=== PATIENT | female | born 1960 | race Caucasian/White ===

== ENCOUNTER → 2016-10-21 16:36 | Outpatient (CLI) | payer MEDICAID | END | disposition home or self-care (01) | LOC: D.MAMMO 08:15 | DX: Z12.31 Encounter for screening mammogram for malignant neoplasm of breast (principal) ==

== ENCOUNTER 2017-09-19 11:28 | Inpatient (IN) | payer MEDICARE ==
[~2017-09-19] VITALS: Ht 157.5 cm; Wt 152.6 kg
--- NOTE | ~2017-09-19 | EC ---
PATIENT:ROXI OROSCO DATE OF SERVICE: 09/19/17 SEX: F MEDICAL RECORD: [id number] DATE OF : 62 LOCATION:D.M2 D.210 AGE OF PATIENT: 57 ADMISSION DATE: 09/19/17 REFERRING PHYSICIAN: INTERPRETING PHYSICIAN: SARY RAMSEY MD ECHOCARDIOGRAM REPORT ECHO CHARGES 4 ECHO COMPLETE Date: 09/21 CLINICAL DIAGNOSIS: CHF ECHOCARDIOGRAPHIC MEASUREMENTS (adult normal given) AC root (d.<3.7cm) 3.0 cm LV Septum d (<1.2 cm> 1.6 cm Valve Excursion 1.4 cm LV Septum (systole) 2.3 cm Left Atria (s.<4.0cm> 3.8 cm LVPW d(<1.2cm) 1.3 cm RV (d.<2.3cm) 3.5 cm LVPW (sytole) 1.0 cm LV diastole(<5.6CM) 4.8 cm MV E-F(>70mm/sec) cm LV systole 4.4 cm LVOT Diameter 2.2 cm MV exc.(>10mm) cm Est.ejection fraction (50-75%) % DOPPLER: LVIT cm/sec A 124 cm/sec E 132 cm/sec LA cm/sec RVSP 48.2 mmHg LVOT 234 cm/sec AOP1/2T m/s Asc. Ao 330 cm/sec RVOT 60 cm/sec RA cm/sec PA 83 cm/sec AV Gradient Peak 3.3 mmHg AV Mean 2.1 mmHg AV Area 3.1 cm MV Gradient Peak 15.9 mmHg MV Mean 8.1 mmHg MV Area cm COMMENTS: Professional Organizer: Construction Carpenter: 1 Dr. Ramsey TAPE# PACS Pericardial Effusion N DATE OF SERVICE: 09/22/2017 PROCEDURE: Echocardiogram. FINDINGS: 1. Left ventricular chamber size is within normal limits. Left ventricular systolic function is normal. Overall ejection fraction estimated at 60%. 2. Left atrium, right atrium, and right ventricle chamber sizes are within normal limits. 3. Valvular structures have normal structure and motion. ECHOCARDIOGRAM REPORT [id number] ROXI OROSCO 4. Doppler interrogation reveals no significant valvular insufficiency or stenosis. 5. No evidence of pericardial effusion or left ventricular thrombus. TRANSINT:[id number] Voice Confirmation ID: [id number] DOCUMENT ID: [id number] SARY RAMSEY MD at 1325 CC: [id number] DICTATION DATE: 09/23/17 1055 LEVEL DESIGNER: 09/23/17 1126 DIS IN 09/27/17 [id number] [place] [address]
[2017-09-19] MEDS ORDERED: GLUCOPHAGE500 MG PO (11:49)
[2017-09-19] MEDS ORDERED: HYDROCHLOROTHIA25 MG PO (11:50)
[2017-09-19] MEDS ORDERED: CELEXA20 MG PO (11:50)
[2017-09-19] MEDS ORDERED: VENTOLIN HFA18 GM INH (11:51)
[2017-09-19] MEDS ORDERED: ALBUTEROL2.5 MG/3 M INH (11:51)
[2017-09-19 12:18] LABS: HEMATOCRIT 24.9 % (36.0-48.0); IMMATURE GRANULOCYTES 0.4 % (0-5); LYMPHOCYTES 14.4 % (15-50); MCH 20.8 pg (26.0-34.0); MCHC 26.5 g/dL (31.0-37.0); MCV 78.5 fL (80.0-100.0); MEAN PLATELET VOLUME 9.5 fL (7.4-10.4); MONOCYTES 8.7 % (2-11); NEUTROPHILS 72.5 % (40-80); PLATELET COUNT 211 10x3/uL (130-400); RBC 3.17 10x6/uL (4.00-5.40); RDW 21.7 % (11.5-14.5); WBC 10.1 10x3/uL (4.8-10.8)
[2017-09-19 12:23] LABS: HEMOGLOBIN 6.6 g/dL (12-16)
[2017-09-19 12:31] VITALS: BP 139/55
[2017-09-19 12:34] LABS: ALBUMIN 3.4 g/dL (3.4-5.0); ANION GAP 7.9 mmol/L (8-16); BILIRUBIN - TOTAL 0.45 mg/dL (0.2-1.3); CALCIUM 8.9 mg/dL (8.5-10.1); CARBON DIOXIDE 35.9 mmol/L (21.0-32.0); POTASSIUM - SERUM 3.8 mmol/L (3.5-5.1); PROTEIN - SERUM 7.8 g/dL (6.4-8.2)
[2017-09-19 12:56] LABS: % SATURATION 3 % (15-55); IRON 16 ug/dl (35-150); TOTAL IRON BIND CAPACITY 513 ug/dl (260-445)
[2017-09-19 13:02] LABS: UNSAT IRON BIND CAPACITY 497 ug/dl (150-375)
[2017-09-19 13:14] LABS: FERRITIN 5 ng/mL (3-244); LDH 189 U/L (81-234)
[2017-09-19 13:31] VITALS: BP 138/57
[2017-09-19 14:31] VITALS: BP 122/60
[2017-09-19 15:33] VITALS: BP 118/58
[2017-09-19 16:31] VITALS: BP 133/70
[2017-09-19 20:00] VITALS: BP 117/49
[2017-09-20] VITALS: BP 139/64
[2017-09-20 04:00] VITALS: BP 140/70
[2017-09-20 06:13] LABS: ANION GAP 5.4 mmol/L (8-16); CALCIUM 8.2 mg/dL (8.5-10.1); POTASSIUM - SERUM 3.4 mmol/L (3.5-5.1)
[2017-09-20 06:58] LABS: EOSINOPHILS 4.7 % (0-7); HEMATOCRIT 26.6 % (36.0-48.0); IMMATURE GRANULOCYTES 0.5 % (0-5); LYMPHOCYTES 11.8 % (15-50); MCH 21.9 pg (26.0-34.0); MCHC 27.4 g/dL (31.0-37.0); MCV 79.6 fL (80.0-100.0); MEAN PLATELET VOLUME 10.6 fL (7.4-10.4); MONOCYTES 10.2 % (2-11); NEUTROPHILS 71.8 % (40-80); PLATELET COUNT 209 10x3/uL (130-400); RBC 3.34 10x6/uL (4.00-5.40); RDW 21.1 % (11.5-14.5)
[2017-09-20 07:03] LABS: HEMOGLOBIN 7.3 g/dL (12-16)
[2017-09-20 08:01] LABS: HEMATOCRIT 26.7 % (36.0-48.0)
[2017-09-20 08:09] LABS: HEMOGLOBIN 7.3 g/dL (12-16)
[2017-09-20 08:21] VITALS: BP 146/76
[2017-09-20 11:47] VITALS: BP 148/68
[2017-09-20 13:08] LABS: HEMATOCRIT 26.9 % (36.0-48.0)
[2017-09-20 13:17] LABS: HEMOGLOBIN 7.4 g/dL (12-16)
[2017-09-20 20:49] VITALS: BP 144/80
[2017-09-21 00:35] VITALS: BP 110/50
[2017-09-21 05:15] VITALS: BP 116/52
[2017-09-21 05:46] LABS: BASOPHILS 1.1 % (0-2); EOSINOPHILS 5.2 % (0-7); HEMATOCRIT 28.8 % (36.0-48.0); HEMOGLOBIN 7.8 g/dL (12-16); IMMATURE GRANULOCYTES 1.2 % (0-5); LYMPHOCYTES 12.2 % (15-50); MCH 22.2 pg (26.0-34.0); MCHC 27.1 g/dL (31.0-37.0); MONOCYTES 12.2 % (2-11); NEUTROPHILS 68.1 % (40-80); PLATELET COUNT 179 10x3/uL (130-400); RBC 3.52 10x6/uL (4.00-5.40); WBC 10.5 10x3/uL (4.8-10.8)
[2017-09-21 05:55] LABS: MCV 81.8 fL (80.0-100.0)
[2017-09-21 06:03] LABS: INR 1.11 (0.85-1.17); PROTIME 13.9 SECONDS (11.6-15.0)
[2017-09-21 06:24] LABS: ANION GAP 4.5 mmol/L (8-16); CALCIUM 8.2 mg/dL (8.5-10.1); CARBON DIOXIDE 39.1 mmol/L (21.0-32.0); CREATININE - SERUM 0.9 mg/dL (0.6-1.3); POTASSIUM - SERUM 3.6 mmol/L (3.5-5.1); T4 THYROXIN - FREE 1.09 ng/dL (0.76-1.46); THYROID STIMULATING HORMONE 1.44 uIU/mL (0.36-3.74)
[2017-09-21 07:55] VITALS: BP 124/56
[2017-09-21 11:14] VITALS: BP 116/58
[2017-09-21 15:43] VITALS: BP 132/51
[2017-09-21] MEDS ORDERED: MIRALAX17 GM PO (15:48)
[2017-09-21] MEDS ORDERED: FERROUS SULFAT325 MG PO (15:48)
[2017-09-21 20:21] VITALS: BP 132/50
[2017-09-22 00:31] VITALS: BP 123/50
[2017-09-22 04:37] VITALS: BP 129/78
[2017-09-22 07:52] VITALS: BP 117/58
[2017-09-22 12:15] VITALS: BP 136/59
[2017-09-22 14:03] LABS: HEMATOCRIT 30.1 % (36.0-48.0); HEMOGLOBIN 8.1 g/dL (12-16); MCH 22.8 pg (26.0-34.0); MCHC 26.9 g/dL (31.0-37.0); MCV 84.8 fL (80.0-100.0); MEAN PLATELET VOLUME 10.6 fL (7.4-10.4); PLATELET COUNT 193 10x3/uL (130-400); RBC 3.55 10x6/uL (4.00-5.40); RDW 21.3 % (11.5-14.5); WBC 12.3 10x3/uL (4.8-10.8)
[2017-09-22 14:27] LABS: CALC OSMOLALITY 289 mosm/kg (275-300); CALCIUM 8.2 mg/dL (8.5-10.1); CHLORIDE - SERUM 101 mmol/L (98-107); CREATININE - SERUM 0.7 mg/dL (0.6-1.3); GLUCOSE 127 mg/dL (74-106); SODIUM 145 mmol/L (136-145); UREA NITROGEN 10 mg/dL (7-18); eGFR NON AFRICAN AMERICAN > 90 mL/min (90-120)
[2017-09-22 14:47] LABS: EOSINOPHILS 4 % (0-7); LYMPHOCYTES 18 % (15-50); MONOCYTES 6 % (2-11); NEUTROPHILS 70 % (40-80); PLATELET ESTIMATE NORMAL; PLATELET MORPHOLOGY NORMAL PLT MORPH
[2017-09-22 15:07] LABS: POTASSIUM - SERUM 4.3 mmol/L (3.5-5.1)
[2017-09-22 15:08] LABS: CARBON DIOXIDE 44.3 mmol/L (21.0-32.0)
[2017-09-22 16:12] VITALS: BP 125/63
[2017-09-22 21:39] VITALS: BP 138/46
[2017-09-23 01:29] VITALS: BP 133/58
[2017-09-23 04:24] LABS: EOSINOPHILS 3.4 % (0-7); HEMATOCRIT 30.4 % (36.0-48.0); HEMOGLOBIN 8.2 g/dL (12-16); IMMATURE GRANULOCYTES 1.5 % (0-5); LYMPHOCYTES 10.1 % (15-50); MCV 85.2 fL (80.0-100.0); MEAN PLATELET VOLUME 10.2 fL (7.4-10.4); MONOCYTES 8.5 % (2-11); NEUTROPHILS 75.5 % (40-80); PLATELET COUNT 192 10x3/uL (130-400); RBC 3.57 10x6/uL (4.00-5.40); RDW 21.5 % (11.5-14.5); WBC 13.7 10x3/uL (4.8-10.8)
[2017-09-23 04:30] VITALS: BP 109/76
[2017-09-23 04:48] LABS: CALC OSMOLALITY 285 mosm/kg (275-300); CALCIUM 8.3 mg/dL (8.5-10.1); CHLORIDE - SERUM 99 mmol/L (98-107); CREATININE - SERUM 0.8 mg/dL (0.6-1.3); GLUCOSE 133 mg/dL (74-106); SODIUM 143 mmol/L (136-145); UREA NITROGEN 11 mg/dL (7-18); eGFR NON AFRICAN AMERICAN 78 mL/min (90-120)
[2017-09-23 04:52] LABS: CARBON DIOXIDE 41.8 mmol/L (21.0-32.0)
[2017-09-23 08:03] VITALS: BP 145/71
[2017-09-23 11:55] VITALS: BP 151/69
[2017-09-23 15:01] VITALS: Ht 157.5 cm; Wt 152.6 kg
[2017-09-23 15:39] VITALS: BP 99/69
[2017-09-23 17:13] LABS: SPE - A/G RATIO 0.9 (0.7-1.7); SPE - ALPHA-1 GLOBULIN 0.3 g/dL (0.0-0.4); SPE - ALPHA-2 GLOBULIN 0.7 g/dL (0.4-1.0); SPE - BETA GLOBULIN 1.1 g/dL (0.7-1.3); SPE - GAMMA GLOBULIN 1.2 g/dL (0.4-1.8); SPE - M-SPIKE Not Observed g/dL (Not Observed); SPE - TOTAL PROTEIN 6.3 g/dL (6.0-8.5)
[2017-09-23 20:31] VITALS: BP 147/74
[2017-09-24 01:10] VITALS: BP 126/57
[2017-09-24 04:00] VITALS: BP 138/63
[2017-09-24 05:04] LABS: MAGNESIUM - SERUM 1.7 mg/dL (1.8-2.4); PHOSPHOROUS 2.2 mg/dL (2.5-4.9)
[2017-09-24 08:05] VITALS: BP 148/72
[2017-09-24 11:41] VITALS: BP 129/68
[2017-09-24 16:14] VITALS: BP 106/59
[2017-09-24 21:26] VITALS: BP 121/62
[2017-09-25 00:45] VITALS: BP 139/68
[2017-09-25 05:42] LABS: CALC OSMOLALITY 284 mosm/kg (275-300); CALCIUM 8.2 mg/dL (8.5-10.1); CHLORIDE - SERUM 98 mmol/L (98-107); CREATININE - SERUM 0.7 mg/dL (0.6-1.3); GLUCOSE 129 mg/dL (74-106); SODIUM 142 mmol/L (136-145); UREA NITROGEN 12 mg/dL (7-18); eGFR NON AFRICAN AMERICAN > 90 mL/min (90-120)
[2017-09-25 05:55] LABS: POTASSIUM - SERUM 3.4 mmol/L (3.5-5.1)
[2017-09-25 05:56] LABS: CARBON DIOXIDE 47.4 mmol/L (21.0-32.0)
[2017-09-25 06:09] LABS: IMMUNOGLOBULIN A 320 mg/dL (87-352); IMMUNOGLOBULIN G 1339 mg/dL (700-1600)
[2017-09-25 06:28] LABS: BASOPHILS 0.8 % (0-2); EOSINOPHILS 4.8 % (0-7); HEMOGLOBIN 7.6 g/dL (12-16); IMMATURE GRANULOCYTES 0.7 % (0-5); LYMPHOCYTES 11.1 % (15-50); MCH 23.2 pg (26.0-34.0); MCHC 27.1 g/dL (31.0-37.0); MCV 85.4 fL (80.0-100.0); MEAN PLATELET VOLUME 9.8 fL (7.4-10.4); NEUTROPHILS 71.6 % (40-80); PLATELET COUNT 162 10x3/uL (130-400); RBC 3.28 10x6/uL (4.00-5.40); RDW 23.1 % (11.5-14.5); WBC 10.4 10x3/uL (4.8-10.8)
[2017-09-25 06:29] VITALS: BP 127/42
[2017-09-25 08:53] VITALS: BP 149/68
[2017-09-25 12:02] VITALS: BP 120/62
[2017-09-25 15:31] VITALS: BP 142/58
[2017-09-25 22:11] VITALS: BP 100/44
[2017-09-26 00:41] VITALS: BP 126/54
[2017-09-26 03:30] LABS: BASOPHILS 0.6 % (0-2); EOSINOPHILS 6.5 % (0-7); HEMATOCRIT 28.2 % (36.0-48.0); HEMOGLOBIN 7.6 g/dL (12-16); IMMATURE GRANULOCYTES 0.6 % (0-5); LYMPHOCYTES 11.3 % (15-50); MCH 23.2 pg (26.0-34.0); MEAN PLATELET VOLUME 10.4 fL (7.4-10.4); MONOCYTES 12.2 % (2-11); NEUTROPHILS 68.8 % (40-80); PLATELET COUNT 172 10x3/uL (130-400); RBC 3.28 10x6/uL (4.00-5.40); RDW 23.6 % (11.5-14.5); WBC 10.4 10x3/uL (4.8-10.8)
[2017-09-26 04:07] LABS: CALC OSMOLALITY 279 mosm/kg (275-300); CALCIUM 8.4 mg/dL (8.5-10.1); CHLORIDE - SERUM 96 mmol/L (98-107); GLUCOSE 157 mg/dL (74-106); POTASSIUM - SERUM 3.1 mmol/L (3.5-5.1); SODIUM 139 mmol/L (136-145); UREA NITROGEN 11 mg/dL (7-18)
[2017-09-26 04:21] LABS: CREATININE - SERUM 0.9 mg/dL (0.6-1.3)
[2017-09-26 04:22] LABS: CARBON DIOXIDE 48.3 mmol/L (21.0-32.0); eGFR NON AFRICAN AMERICAN 69 mL/min (90-120)
[2017-09-26 05:34] VITALS: BP 120/49
[2017-09-26 07:56] VITALS: BP 142/69
[2017-09-26 10:36] VITALS: BP 136/72
[2017-09-26 15:18] VITALS: BP 134/70
[2017-09-26 20:00] VITALS: BP 139/83
[2017-09-27 04:00] VITALS: BP 148/73
[2017-09-27 05:48] LABS: BASOPHILS 0.8 % (0-2); EOSINOPHILS 6.5 % (0-7); HEMATOCRIT 29.8 % (36.0-48.0); HEMOGLOBIN 7.9 g/dL (12-16); IMMATURE GRANULOCYTES 0.6 % (0-5); LYMPHOCYTES 10.2 % (15-50); MCH 23.4 pg (26.0-34.0); MCHC 26.5 g/dL (31.0-37.0); MONOCYTES 9.7 % (2-11); NEUTROPHILS 72.2 % (40-80); PLATELET COUNT 175 10x3/uL (130-400); RBC 3.38 10x6/uL (4.00-5.40); RDW 24.4 % (11.5-14.5); WBC 8.9 10x3/uL (4.8-10.8)
[2017-09-27 05:58] LABS: MCV 88.2 fL (80.0-100.0)
[2017-09-27 06:06] LABS: CALCIUM 8.7 mg/dL (8.5-10.1); CREATININE - SERUM 0.9 mg/dL (0.6-1.3)
[2017-09-27 06:19] LABS: ANION GAP 3.4 mmol/L (8-16); POTASSIUM - SERUM 3.5 mmol/L (3.5-5.1)
[2017-09-27 06:20] LABS: CARBON DIOXIDE 49.1 mmol/L (21.0-32.0)
[2017-09-27 08:34] VITALS: BP 105/57
[2017-09-27] MEDS ORDERED: MUCINEX DM ER1 EAC1 PO (10:34)
[2017-09-27] MEDS ORDERED: SINGULAIR10 MG PO (10:34)
[2017-09-27] MEDS ORDERED: SYMBICORT 16010.2 GM INH (10:34)
[2017-09-27 12:38] VITALS: BP 126/56
[2017-09-30 07:29] LABS: IMMUNOGLOBULIN E 134 IU/mL (0-100)
[2017-10-01 18:08] LABS: FUNGAL - ASP FLAVUS Negative (Neg:<1:1); FUNGAL - ASP NIGER Negative (Neg:<1:1); FUNGAL - ASPER FUMIGATUS Negative (Neg:<1:1)
[2017-10-04 15:26] LABS: ANA REFLEX - ANTICHROMATIN ABS <0.2 AI (0.0-0.9); ANA REFLEX - CENTROMERE B ABS <0.2 AI (0.0-0.9); ANA REFLEX - DBL STRANDED DNA 1 IU/mL (0-9); ANA REFLEX - DIRECT Positive (Negative); ANA REFLEX - JO-1 AB <0.2 AI (0.0-0.9); ANA REFLEX - RNP ANTIBODIES <0.2 AI (0.0-0.9); ANA REFLEX - SCL-70 <0.2 AI (0.0-0.9); ANA REFLEX - SJOGRENS AB SSA 6.2 AI (0.0-0.9); ANA REFLEX - SJOGRENS AB SSB <0.2 AI (0.0-0.9); ANA REFLEX - SMITH AB <0.2 AI (0.0-0.9)
== END 2017-09-27 18:01 | disposition home or self-care (01) | DRG 377 ==
LOC: D.ER 11:28 → D.M2 17:19 → D.SDCHOLD 09-21 11:26 → D.M2 09-27 18:01
PROVIDERS: Family Medicine; Internal Medicine Gastroenterology; Internal Medicine Nephrology; Internal Medicine Pulmonary Disease
PROC: 0DB78ZX Excision of Stomach, Pylorus, Via Natural or Artificial Opening Endoscopic, Diagnostic (ICD-10-PCS; 2017-09-20)
PROC: 0DB98ZX Excision of Duodenum, Via Natural or Artificial Opening Endoscopic, Diagnostic (ICD-10-PCS; principal; 2017-09-20 12:30)
PROC: 5A09457 Assistance with Respiratory Ventilation, 24-96 Consecutive Hours, Continuous Positive Airway Pressure (ICD-10-PCS; 2017-09-24)
DX: K29.01 Acute gastritis with bleeding (principal); J15.6 Pneumonia due to other Gram-negative bacteria; J96.22 Acute and chronic respiratory failure with hypercapnia; J96.21 Acute and chronic respiratory failure with hypoxia; J13 Pneumonia due to Streptococcus pneumoniae; D62 Acute posthemorrhagic anemia; J44.0 Chronic obstructive pulmonary disease with (acute) lower respiratory infection; I50.30 Unspecified diastolic (congestive) heart failure; Z68.44 Body mass index [BMI] 60.0-69.9, adult; K44.9 Diaphragmatic hernia without obstruction or gangrene; K29.60 Other gastritis without bleeding; D50.9 Iron deficiency anemia, unspecified; I27.20 Pulmonary hypertension, unspecified; G47.33 Obstructive sleep apnea (adult) (pediatric); J30.9 Allergic rhinitis, unspecified; E11.9 Type 2 diabetes mellitus without complications; F32.9 Major depressive disorder, single episode, unspecified; M54.5 Low back pain; E66.01 Morbid (severe) obesity due to excess calories

== ENCOUNTER 2019-02-09 11:29 | Inpatient (IN) | payer MEDICARE ==
[~2019-02-09] VITALS: Ht 157.5 cm; Wt 136.8 kg
[2019-02-09] VITALS (12 sets, daily range): BP systolic 108–142; BP diastolic 54–92; BMI 62.3
--- NOTE | ~2019-02-09 | CN ---
PATIENT NAME:ROXI MARTIN MEDICAL RECORD: [id number] : 62 LOCATION:[facility]IC[facility].2309 ADMIT DATE: 02/09/19 ACCOUNT: [id number] CONSULTING PHYSICIAN: BRIANNA TAYLOR MD REFERRING PHYSICIAN: HANNA OQUENDO MD DATE OF CONSULTATION: 02/10/2019 CONSULT REQUESTING PHYSICIAN: Hanna Oquendo MD REASON FOR CONSULTATION: Acute hypoxic and hypercapnic respiratory failure. HISTORY OF PRESENT ILLNESS: Ms. Martin is a 59-year-old female who has well known COPD, chronic hypoxic respiratory failure, anemia, required transfusion. The patient is sick for the last few days. She was seen in the walk-in clinic, and the patient was sent to the hospital. She is sick for the last 1 week. She is coughing. She is wheezing. She has shortness of breath. She has orthopnea and PND. She denies any fever and chills, no night sweats. REVIEW OF SYSTEMS: As in history of present illness. PAST MEDICAL HISTORY: 1. COPD. 2. Chronic hypoxic respiratory failure. 3. Morbid obesity. 4. Iron deficiency anemia. 5. Type 2 diabetes mellitus. 6. Depression. 7. History of gastric ulcer disease. 8. History of possible kidney cancer. PAST SURGICAL HISTORY: 1. She has a . 2. Hysterectomy. ALLERGIES: No known drug allergy. MEDICATIONS: Featherlight is reviewed. PERSONAL AND SOCIAL HISTORY: The patient is a nondrinker. She is a smoker. PHYSICAL EXAMINATION: GENERAL: Now, the patient is lying in bed. She is wearing BiPAP machine. She is not in acute distress. VITAL SIGNS: The blood pressure is 132/79, pulse is 83, respirations 16, temperature is 98.8, SpO2 is 97% to 98% on BiPAP, 30% oxygen. HEENT: Conjunctivae are pink. Sclerae are not icteric. NECK: Supple, no JVD. CHEST: The chest excursion is minimal on both sides bilateral crackles, wheeze on forceful expiration. HEART: Rhythm regular, normal sound. The heart sounds are distant. ABDOMEN: Soft, bowel sounds present. No hepatosplenomegaly. RECTAL: Deferred. EXTREMITIES: No cyanosis, no clubbing. There is any pitting edema. CENTRAL NERVOUS SYSTEM: The patient is awake and alert. There is no obvious cranial nerve abnormality. The gait was not tested. CONSULT REPORT [id number] ORXI MARTIN [facility] DATA: CBC: The WBC is 22.7, hemoglobin 29.7, the hematocrit is 29.7, and the platelet count 318. Chemistry: Sodium 143, potassium 3.7, BUN is 18, creatinine 0.9, and glucose 145. ABG: The pH on admission was 7.31, pCO2 is 83.9, the PO2 was 130, bicarb was 42.7. IMPRESSION: 1. Sqobz-jl-sdpzohz hypoxic hypercapnic respiratory failure. 2. Bilateral pneumonia. 3. Respiratory acidosis. 4. Acute exacerbation of chronic obstructive pulmonary disease. 5. Noncompensated metabolic alkalosis. 6. Pleural effusion. 7. Anemia. RECOMMENDATIONS: 1. Continue BiPAP at the present setting, take off for the eating and drinking. 2. Continue Brovana and budesonide nebulizer. 3. Albuterol/ipratropium nebulizer. 4. Lasix IV. 5. Start on Diamox. 6. Follow up labs and chest radiograph. 7. Check the ammonia level. 8. Albuterol/ipratropium nebulizer. 9. DVT prophylaxis. 10. Sliding scale insulin. 11. Follow up labs and chest radiograph. Discussed with Dr. Oquendo. Thank you for involving me in the care of Ms. Martin. TRANSINT:[id number] Voice Confirmation ID: [id number] DOCUMENT ID: [id number] BRIANNA TAYLOR MD CC: [id number] DICTATION DATE: 02/10/191904 JACQUARD CARD LACER: 02/10/192222 ADM IN [id number] [place] [address]
[~2019-02-09 11:29] MED LIST: ALBUTEROL2.5 MG/3 M INH; CELEXA20 MG PO; FERROUS SULFAT325 MG PO; GLUCOPHAGE500 MG PO; HYDROCHLOROTHIA25 MG PO; MIRALAX17 GM PO; MUCINEX DM ER1 EAC1 PO; SINGULAIR10 MG PO; SYMBICORT 16010.2 GM INH; VENTOLIN HFA18 GM INH
[2019-02-09 12:26] LABS: CALC OSMOLALITY 283 mosm/kg (275-300); CALCIUM 9.4 mg/dL (8.5-10.1); CHLORIDE - SERUM 98 mmol/L (98-107); CREATININE - SERUM 0.9 mg/dL (0.6-1.3); GLUCOSE 194 mg/dL (74-106); POTASSIUM - SERUM 3.6 mmol/L (3.5-5.1); SODIUM 139 mmol/L (136-145); UREA NITROGEN 15 mg/dL (7-18); eGFR NON AFRICAN AMERICAN 68 mL/min (90-120)
[2019-02-09 12:30] LABS: MCH 22.8 pg (26.0-34.0); MCHC 26.7 g/dL (31.0-37.0); MCV 85.4 fL (80.0-100.0); MEAN PLATELET VOLUME 10.1 fL (7.4-10.4); PLATELET COUNT 363 10x3/uL (130-400); RBC 3.16 10x6/uL (4.00-5.40); RDW 20.2 % (11.5-14.5); WBC 21.4 10x3/uL (4.8-10.8)
[2019-02-09 12:31] LABS: HEMOGLOBIN 7.2 g/dL (12-16)
--- NOTE | 2019-02-09 12:31 | NUR ---
NOTIFIED BY LAB OF [facility] OF 7.2 TREATING PROVIDER NOTIFIED.
[2019-02-09 12:43] LABS: ALBUMIN 2.6 g/dL (3.4-5.0); ALKALINE PHOSPHATASE 157 U/L (46-116); ALT (SGPT) 29 U/L (10-68); BILIRUBIN - TOTAL 1.15 mg/dL (0.2-1.3); CKMB 0.5 U/L (0.0-3.6); CREATINE KINASE 55 UL (21-215); PRO BNP 1247 pg/mL (0-125); PROTEIN - SERUM 7.9 g/dL (6.4-8.2); TROPONIN-I < 0.017 ng/mL (0.000-0.060)
[2019-02-09 12:45] LABS: APTT 39.3 SECONDS (22.8-39.4); INR 1.18 (0.85-1.17); PROTIME 14.5 SECONDS (11.6-15.0)
[2019-02-09 13:02] LABS: IRON 10 ug/dl (35-150)
[2019-02-09 13:45] LABS: EOSINOPHILS 4 % (0-7); LYMPHOCYTES 9 % (15-50); MONOCYTES 13 % (2-11); NEUTROPHILS 68 % (40-80); PLATELET ESTIMATE NORMAL
[2019-02-09 13:46] LABS: ANISOCYTOSIS OCC
--- NOTE | 2019-02-09 14:00 | NUR ---
RECEIVED PT TO ROOM 2309 VIA BED ACCOMPANIED BY STAFF. PT ON BIPAP, NO ACUTE NEEDS OR DISTRESS NOTED AT THIS TIME. WILL CONT TO MONITOR.
[2019-02-09 14:41] LABS: % SATURATION 3 % (15-55); TOTAL IRON BIND CAPACITY 289 ug/dl (260-445); UNSAT IRON BIND CAPACITY 279 ug/dl (150-375)
--- NOTE | 2019-02-09 15:00 | NUR ---
REASSESSMENT COMPLETED PER FLOWSHEET, SEE FLOWSHEET FOR INFORMATION. NO ACUTE NEEDS OR DISTRESS NOTED AT THIS TIME. WILL CONT TO MONITOR.
[2019-02-09 15:09] LABS: MAGNESIUM - SERUM 1.6 mg/dL (1.8-2.4)
--- NOTE | 2019-02-09 17:00 | NUR ---
PT RESTING IN BED WITH EYES CLOSED. NO ACUTE NEEDS OR DISTRESS NOTED AT THIS TIME. VSS. WILL CONT TO MONITOR.
--- NOTE | 2019-02-09 19:00 | NUR ---
REPORT RECEIVED. INITIAL ASSESSMENT COMPLETE SEE FLOWSHEET FOR FULL ASSESSMENT. PT MORBIDLY OBESE BIPAP AT 30% O2 SAT 91%. CM READING SR WITHOUT ECTOPY ALARMS ON AND AUDIBLE. DIMINISHED BREATH SOUNDS DUE TO OBESITY FOLLOWS COMMANDS.BED IN LOW POSITION SIDE RAILS UP TIMES 3 FOR BED MOBILITY AND SAFETY CL IN REACH PT DENIES NEEDS AT THIS TIME WILL CONTINUE TO MONITOR
--- NOTE | 2019-02-09 21:30 | NUR ---
ANSWERED PTS CALL LIGHT ASSISTED TO REPOSITION IN BED
--- NOTE | 2019-02-09 23:00 | NUR ---
REASSSESSMENT MADE SEE FLOWSHEET ASSIST WITH REPOSITIONING FOR COMFORT VSS WILL CONTINUE TO MONITOR. CPOC
[2019-02-10] VITALS (24 sets, daily range): BP systolic 114–164; BP diastolic 61–90; Ht 157.5 cm; Wt 136.8 kg
--- NOTE | 2019-02-10 00:14 | NUR ---
ANSWERED PTS CALL LIGHT PT REQUESTING SOMETHING FOR PAIN TO HELP HER SLEEP. MEDICATED PER PRN MED SEE EMAR
--- NOTE | 2019-02-10 00:45 | NUR ---
CHECKED ON PT POST PRN PAIN MED RESTING QUIETLY WITH EYES CLOSED VSS CPOC
--- NOTE | 2019-02-10 01:00 | NUR ---
VICKY FEMALE EXTERNAL CATHETER LAYING IN BED AND PT STATES SHE HAS URINATED ALL OVER BED. CHG COMPLETE BED BATH AND COMPLETE LINEN CHANGE
--- NOTE | 2019-02-10 01:20 | NUR ---
ANSWERED PTS CALL LIGHT SHE IS REQUESTING COFFEE AND HAS TURNED TV BACK ON IN SPITE OF ASKING FOR SOMETHING TO HELP HER REST. INFORMED PT NEEDS TO REST AND EDUCATED AGAIN THAT DID SAY SHE COULD HAVE BREAKS FROM BIPAP BUT THAT WITH THE BREAK SHE WAS GIVEN EARLIER SHE OVER EXERTED AND NEEDS TO KEEP BIPAP ON.
--- NOTE | 2019-02-10 02:45 | NUR ---
ANSWERED CALL LIGHT PT HAS URINATED ALL OVER BED AGAIN COMPLETE CHG BATH AND LINEN CHANGE WELL WALKER CATH PLACED
--- NOTE | 2019-02-10 03:00 | NUR ---
REASSESSMENT MADE WALKER NOW IN PLACE ONCE PLACED IMMEDIATE RETURN OF 450 URINE CONCENTRATED AFTER EXTERNAL CATHETER DISPLACED
[2019-02-10 03:14] LABS: APPEARANCE HAZY (CLEAR); COLOR YELLOW (YELLOW); NITRITE NEGATIVE (NEGATIVE); SPECIFIC GRAVITY 1.015 (1.005-1.020)
[2019-02-10 03:15] LABS: BILIRUBIN NEGATIVE (NEGATIVE); GLUCOSE NEGATIVE (NEGATIVE); KETONE NEGATIVE (NEGATIVE); PROTEIN TRACE mg/dL (NEGATIVE); UROBILINOGEN NORMAL (NORMAL); WHITE CELLS - URINE RARE /hpf (NEGATIVE)
[2019-02-10 04:16] LABS: BASOPHILS 0.5 % (0-2); EOSINOPHILS 1.2 % (0-7); HEMATOCRIT 29.7 % (36.0-48.0); HEMOGLOBIN 7.8 g/dL (12-16); IMMATURE GRANULOCYTES 0.8 % (0-5); LYMPHOCYTES 3.6 % (15-50); MCH 23.1 pg (26.0-34.0); MCHC 26.3 g/dL (31.0-37.0); MCV 88.1 fL (80.0-100.0); MONOCYTES 9.8 % (2-11); NEUTROPHILS 84.1 % (40-80); PLATELET COUNT 380 10x3/uL (130-400); RBC 3.37 10x6/uL (4.00-5.40); RDW 19.9 % (11.5-14.5); WBC 22.7 10x3/uL (4.8-10.8)
[2019-02-10 04:30] LABS: ANION GAP 10.9 mmol/L (8-16); CALCIUM 8.9 mg/dL (8.5-10.1); CARBON DIOXIDE 39.8 mmol/L (21.0-32.0); CREATININE - SERUM 0.9 mg/dL (0.6-1.3); POTASSIUM - SERUM 3.7 mmol/L (3.5-5.1)
--- NOTE | 2019-02-10 05:00 | NUR ---
PTS BIPAP ALARMING O2 SAT DOWN TO 60'S PLACED BACK ON AND REEDUCATED PT ON BIPAP AND O2
--- NOTE | 2019-02-10 07:00 | NUR ---
BEDSIDE REPORT RECEIVED. SHIFT ASSESSMENT COMPLETED PER FLOWSHEET, SEE FLOWSHEET FOR INFORMATION. NO ACUTE NEEDS OR DISTRESS NOTED AT THIS TIME. VSS. WILL CONT TO MONITOR.
--- NOTE | 2019-02-10 09:00 | NUR ---
ANSWERED PT CALL LIGHT, PT REQUSTING "GET THIS THING OFF MY FACE" INFORMED PT ON RISK OF LOW OXYGEN WHEN TAKING THE BIPAP MASK OFF. PT VERBALIZED UNDERSTANDING. WILL CONT TO MONITOR.
--- NOTE | 2019-02-10 11:00 | NUR ---
PT SITTING ON SIDE OF BED, ASSISSTED PT TO LAY IN BED. REASSESSMENT COMPLETED PER FLOWSHEET, SEE FLOWSHEET FOR INFORMATION. NO ACUTE NEEDS OR DISTRESS NOTED AT THIS TIME. VSS. WILL CONT TO MONITOR.
--- NOTE | 2019-02-10 13:00 | NUR ---
PT DAUGHTER AT BEDSIDE. PT SITTING ON SIDE OF BED, NO NEEDS OR DISTRESS NOTED AT THIS TIME. VSS. WILL CONT TO MONITOR.
--- NOTE | 2019-02-10 15:00 | NUR ---
PT SITTING ON SIDE OF BED, REQUESTING A DRINK OF WATER. DRINK OF WATER GIVEN, INSTRUCTED PT TO COUGH AND CLEAR AIRWAY COMPLETELY BEFORE PUTTING THE BIPAP MASK BACK ON. PT DENIES ANY ACUTE NEEDS OR DISTRESS AT THIS TIME. VSS. WILL CONT TO MONITOR.
--- NOTE | 2019-02-10 17:00 | NUR ---
TOOK PT OFF BIPAP TO EAT DINNER, 2 MINUTES AFTER TAKING PT OFF BIPAP O2 SAT WAS 72%. INSTRUCTED PT TO COUGH AND DEEP BREATH TO CLEAR AIRWAY TO PUT BIPAP MASK BACK ON. ONCE BIPAP MASK WAS BACK ON O2 SAT WAS 95%. WILL CONT TO MONITOR.
--- NOTE | 2019-02-10 17:17 | NUR ---
REPORT GIVEN TO SUJATA YANG. WILL CONT TO MONITOR.
--- NOTE | 2019-02-10 17:17 | NUR ---
LYING IN BED ON BIPAP AT THIS TIME. VSS. NO ACUTE DISTRESS NOTED. RESPIRATIONS UNLABORED, OXYGEN SATURATION 95%. AWAKENS EASILY WHEN SPOKEN TO. WILL CONTINUE PLAN OF CARE.
--- NOTE | 2019-02-10 19:00 | NUR ---
REPORT RECEIVED. INITIAL ASSESMENT COMPLETE. DR TAYLOR AT BEDSIDE SPEAKING TO PATIENT NEW ORDERS NOTED. PT SITTING ON SIDE OF BED WITH BIPAP ON ALERT AND ORIENTED DENIES PAIN OR SOB. BIPAP 40%. PT IS ATTEMPTING TO DRINK WATER WITH BIPAP IN PLACE INFORMED THAT DUE TO THE PRESSURE PUSHING TO OPEN AIRWAYS THAT THERE IS HIGH RISK OF ASPIRATION AND NOTHING BY MOUTH WHILE BIPAP MASK ON. DR TAYLOR STATED OK TO GIVE PT BREAK FROM BIPAP TO HFNC FOR EATING AND DRINKING IF PT TOLERATES. RESP SHALLOW NOT LABORED PT O2 SAT AT THIS TIME 98 BUT WHEN PT TAKES MASK OFF SHE DROPS TO 70'S. INFORMED PT WILL GIVE BREAK WHEN HS MEDS DUE AND SEE HOW O2 SAT HOLDS UP PT VERBALIZES GOOD UNDERSTANDING. BED LOW POSITION CL IN REACH WILL CONTINUE TO MONITOR
--- NOTE | 2019-02-10 19:26 | NUR ---
CRITICAL LAB VALUE AMMONIA NEW ORDERS NOTED FROM DR TAYLOR
--- NOTE | 2019-02-10 20:05 | NUR ---
PT PLACED ON 15 LPM HFNC PER RT.
--- NOTE | 2019-02-10 20:25 | NUR ---
ANSWERED PTS CALL LIGHT SHE IS REQUESTING SOMETHING TO EAT O2 SAT 97% ON HFNC SANDWICH TRAY GIVEN WILL CONTINUE TO MONITOR
--- NOTE | 2019-02-10 20:45 | NUR ---
ANSWERED PTS CALL LIGHT SHE WANTS TO GET UP OUT OF BED AND WALK AROUND PT TOLERATED HFNC WITH EATING AND DRINKING WITH HS MEDS WELL. O2 SAT HAS STAYED MID TO UPPER 90'S. INFORMED NOT ABLE TO DO AT THIS WITH FIRST TIME OFF BIPAP
--- NOTE | 2019-02-10 21:48 | NUR ---
ANSWERED PTS CALL LIGHT PT NEEDS TO HAVE BM UP TO BSC WITH MINIMAL ASSIST STILL ON HFNC 15LPM DENIES SOB OR DISTRESS O2 SAT93%.
--- NOTE | 2019-02-10 22:00 | NUR ---
PT HAD LARGE LIQUID BROWN STOOL UNABLE TO CLEAN SELF AFTER BM DUE TO MORBID OBESITY. ASSISTED WITH CLEANING AND CHG BATH
--- NOTE | 2019-02-10 22:40 | NUR ---
ANSWERED PTS CALL LIGHT SHE WANTS TO TAKE BIPAP OFF AND WANTS TO HAVE SOMETHING FOR PAIN TO HELP REST C/O BEING UNCOMFORTABLE GENERALIZED FROM BED. INFORMED UNABLE TO TAKE MASK OFF SHE HAD JUST HAD LONG BREAK
--- NOTE | 2019-02-10 23:00 | NUR ---
REASSESSMENT MADE PT HAS PULLED BIPAP OFF INFORMED OF NEED TO KEEP BIPAP ON AND THAT SHE NEES TO REST SINCE PAIN MED HAS BEEN GIVEN UNABLE TO GET UP OOB AND THAT SHE HAD JUST HAD BIPAP BREAK.
[2019-02-11] VITALS (24 sets, daily range): BP systolic 112–151; BP diastolic 55–95
--- NOTE | 2019-02-11 01:15 | NUR ---
PT AGAIN REMINDED TO LEAVE BIPAP MASK ON. PT HAD PULLED OFF AND O2 SAT HAD DROPPED TO 78%.
--- NOTE | 2019-02-11 03:00 | NUR ---
REASSESSMENT MADE PT C/O OF BIPAP MASK AND KEEPS WANTING TO TAKE OFF. THIS RN AND RT HAVE EXPLAINED TO PT THAT BIPAP MASK IS TO STAY ON BUT ABLE TO HAVE SHORT SPAN OF BREAKS.
--- NOTE | 2019-02-11 03:30 | NUR ---
COAT FELLER HERE AT THIS TIME PT FINALLY RESTING INFORMED LAB TO LET PT SLEEP AND GET LAB LATER IN AM.
--- NOTE | 2019-02-11 04:00 | NUR ---
ANSWERED PTS CALL LIGHT ONCE AGAIN SHE WANTS BIPAP OFF. RT AND THIS NURSE HAVE INFORMED PT MULTIPLE TIMES THAT BIPAP TO STAY ON MAJORITY OF TIME ALSO HAVE REMINDED PT THAT TO GET OOB WOULD PUT PT AT GREATER FALL RISK AFTER PAIN MED THAT HAD BEEN GIVEN.
--- NOTE | 2019-02-11 04:57 | NUR ---
RADIOLOGY HERE FOR PORTABLE CHEST X RAY
--- NOTE | 2019-02-11 05:00 | NUR ---
NO LABS ORDERED
[2019-02-11 07:03] LABS: BASOPHILS 0.5 % (0-2); HEMATOCRIT 32.3 % (36.0-48.0); HEMOGLOBIN 8.3 g/dL (12-16); IMMATURE GRANULOCYTES 2.2 % (0-5); LYMPHOCYTES 4.5 % (15-50); MCH 23.2 pg (26.0-34.0); MCHC 25.7 g/dL (31.0-37.0); MEAN PLATELET VOLUME 10.3 fL (7.4-10.4); MONOCYTES 8.8 % (2-11); PLATELET COUNT 401 10x3/uL (130-400); RBC 3.57 10x6/uL (4.00-5.40); RDW 19.9 % (11.5-14.5)
[2019-02-11 07:05] LABS: MCV 90.5 fL (80.0-100.0); WBC 16.8 10x3/uL (4.8-10.8)
[2019-02-11 07:24] LABS: ANION GAP 9.3 mmol/L (8-16); CALCIUM 8.8 mg/dL (8.5-10.1); POTASSIUM - SERUM 3.4 mmol/L (3.5-5.1)
[2019-02-11 07:27] LABS: CARBON DIOXIDE 42.1 mmol/L (21.0-32.0)
--- NOTE | 2019-02-11 08:24 | NUR ---
SITTING UP ON SIDE OF BED EATING BREAKFAST AT THIS TIME ON HIGH FLOW NC AT 15L, OXYGEN SATRUATION AT 95%. VSS. NO ACUTE DISTRESS NOTED. CALL LIGHT IN REACH. WILL CONTINUE PLAN OF CARE.
--- NOTE | 2019-02-11 09:10 | NUR ---
DR TAYLOR PAGED. HE CALLED BACK STATING HE IS NOT ELEMENTARY EDUCATION TUTOR, THAT DR IBARRA IS ELEMENTARY EDUCATION TUTOR. DR IBARRA PAGED.
--- NOTE | 2019-02-11 10:25 | NUR ---
PT ASSITED BACK TO BED, SHE STATED SHE WANTED TO TAKE A NAP, BIPAP IN PLACE. OXYGEN SATURATION 96%. VSS. WILL CONTINUE PLAN OF CARE.
--- NOTE | 2019-02-11 11:07 | NUR ---
CRITICAL LABS NOTED REGARDING ABG, DR STACEY ESCOBAR. WAITING FOR CALLBACK.
--- NOTE | 2019-02-11 12:09 | NUR ---
NO CALLBACK FROM DR IBARRA RECIEVED. PAGED AGAIN.
--- NOTE | 2019-02-11 12:35 | NUR ---
STILL UNABLE TO GET AHOLD OF DR IBARRA. DR SOTO ROUNDING ON PT AT THIS TIME. NOTIFIED OF LAB VALUES. BIPAP IN PLACE. VSS. WILL CONTINUE PLAN OF CARE.
--- NOTE | 2019-02-11 12:49 | NUR ---
PT TOOK BIPAP OFF STATING SHE WANTED TO TALK TO HER FRIEND. NOTIFIED PT THAT SHE CANNOT TOLERATE HER BIPAP OFF YET BECAUSE OF HER CRITICAL CARBON DIOXIDE LEVELS. PT STATED SHE UNDERSTOOD AND WILL KEEP BIPAP ON. DR SOTO ON UNIT, NOTIFIED OF THIS. VSS. WILL CONTINUE PLAN OF CARE.
--- NOTE | 2019-02-11 13:36 | NUR ---
PT UP IN BED TALKING WITH MOTHER AT THIS TIME. VSS. NO ACUTE DISTRESS NOTED. UPDATES PROVIDED. CALL LIGHT IN REACH. WILL CONTINUE PLAN OF CARE.
--- NOTE | 2019-02-11 14:04 | NUR ---
POTASSIUM LEVEL RECHECK IS 4.0.
--- NOTE | 2019-02-11 16:15 | NUR ---
UP IN BED AT THIS TIME, FAMILY AT BEDSIDE. VSS. NO ACUTE DISTRESS NOTED. CALL LIGHT IN REACH. WILL CONTINUE PLAN OF CARE.
--- NOTE | 2019-02-11 17:01 | NUR ---
BIPAP REMOVED AT THIS TIME SO PT COULD EAT SUPPER. FAMILY AT BEDSIDE. DR IBARRA IN ROOM SPEAKING WITH PT AND PTS FAMILY. DR IBARRA STATED AFTER PT FINISHED WITH HER SUPPER SHE NEEDS THE BIPAP BACK ON. NO ACUTE DISTERSS NOTED. VSS. WILL CONTINUE PLAN OF CARE.
--- NOTE | 2019-02-11 17:52 | NUR ---
BIPAP IN PLACE. PT LYING IN BED RESTING WITH EYES CLOSED. RESPIRATIONS UNLABORED. AWAKENS EASILY WHEN SPOKEN TO. VSS. NO ACUTE DISTRESS NOTED. WILL CONTINUE PLAN OF CARE.
--- NOTE | 2019-02-11 19:00 | NUR ---
REPORT RECEIVED. ASSESSMENT COMPLETE PER FLOW SHEET. VSS. NO NEW CHANGES PT RESTING COMFORTABLY RT AT BEDSIDE WILL CONTINUE TO MONITOR
--- NOTE | 2019-02-11 22:20 | NUR ---
PT AGGITATED UPSET STATED WANTING TO LEAVE AMA AT THIS TIME, PT UP OOB REMOVED BIPAP REFUSING O2, ATTEMPTING TO GET DRESSED. NURSE EXPLAINED AT GREAT LENGTH IMPORTANCE OF BIPAP AND O2, STATED UNDERSTANDING BUT WANTED TO LEAVE AT THIS TIME R/T MONITORS, EQUIPMENT, PAIN AND NEEDING A CIGARETTE. NURSE STATED COULD GIVEN PRN MORPHINE FOR PAIN AT THIS TIME AND REASSESS BIPAP IN 10 MINUTES. PRN MORPHINE ADM. 2230 ASKED IF PT WOULD WEAR BIPAP AT THIS TIME STATED OKAY. PT SLEEPING COMFORTABLY ON BIPAP 50%
--- NOTE | 2019-02-11 23:00 | NUR ---
PT SLEEPING COMFORTABLY REASSESSMENT COMPLETE PER FLOW SHEET. VSS. NO NEW CHANGES WILL CONTINUE TO MONITOR
[2019-02-12] VITALS (24 sets, daily range): BP systolic 92–159; BP diastolic 52–90
--- NOTE | 2019-02-12 01:00 | NUR ---
PT SLEEPING COMFORTABLY VSS NO NEW CHANGES WILL CONTINUE TO MONITOR
--- NOTE | 2019-02-12 03:00 | NUR ---
REASSESSMENT COMPLETE PER FLOW SHEET. VSS. NO NEW CHANGES PT RESTING COMFORTABLY WILL CONTINUE TO MONITOR
[2019-02-12 03:42] LABS: BASOPHILS 0.5 % (0-2); EOSINOPHILS 2.5 % (0-7); HEMATOCRIT 29.5 % (36.0-48.0); IMMATURE GRANULOCYTES 4.3 % (0-5); LYMPHOCYTES 5.6 % (15-50); MCH 23.5 pg (26.0-34.0); MCHC 25.4 g/dL (31.0-37.0); MONOCYTES 10.1 % (2-11); PLATELET COUNT 453 10x3/uL (130-400); RBC 3.19 10x6/uL (4.00-5.40); RDW 19.8 % (11.5-14.5); WBC 12.9 10x3/uL (4.8-10.8)
[2019-02-12 03:44] LABS: HEMOGLOBIN 7.5 g/dL (12-16); MCV 92.5 fL (80.0-100.0)
[2019-02-12 03:52] LABS: ANION GAP 4.4 mmol/L (8-16); CALCIUM 9.1 mg/dL (8.5-10.1); MAGNESIUM - SERUM 1.9 mg/dL (1.8-2.4); PHOSPHOROUS 4.5 mg/dL (2.5-4.9); POTASSIUM - SERUM 3.7 mmol/L (3.5-5.1)
[2019-02-12 03:55] LABS: CARBON DIOXIDE 45.3 mmol/L (21.0-32.0)
--- NOTE | 2019-02-12 07:06 | NUR ---
report received. patient is on side of bed on 40% bipap. no acute distress. patient asking when she will get a break from bipap. was informed when she gets taken off bipap she will desat into the 60's. on her breaks they put her on 11 l nc high flow and sats 90's. co2 was 107. morphine was given last night. patient is alert and oriented. kvo lines. lines labeled and capped. vss. will continue to monitor.
--- NOTE | 2019-02-12 08:07 | NUR ---
PATIENT TOOK BIPAP OFF AND PUT HER NASAL CANNULA IN AT 11 L HIGH FLOW. BREAKFAST PROVIDED AND PO MEDS DURING THIS TIME.
--- NOTE | 2019-02-12 09:07 | NUR ---
patient back on bipap.
--- NOTE | 2019-02-12 09:11 | NUR ---
Nutrition follow-up: Pt sitting on side of bed with BIPAP on. Pt reports eating a good breakfast Diet: Consistent CHO PO intake ~75-100% of meals. Wt: 328# labs reviewed RDN following.
--- NOTE | 2019-02-12 11:58 | NUR ---
lunch tray provided. sitting on side of bed. will continue to monitor
--- NOTE | 2019-02-12 12:36 | NUR ---
family at bedside.l
--- NOTE | 2019-02-12 13:47 | NUR ---
PATIENT ON SIDE OF BED. FAMILY AT BEDSIDE. NO ACUTE DISTRESS.
--- NOTE | 2019-02-12 16:57 | MORECARE ---
CASE MANAGEMENT DISCHARGE SUMMARY PATIENT: ROXI OROSCO UNIT: [id number] ADM DATE: 02/09/19 AGE: 59 : 62 SEX: F ROOM/BED: D.2309 AUTHOR: KHADAR,DOC PHYSICIAN: REFERRING PHYSICIAN: HANNA SOTO MD DATE OF SERVICE: 02/12/19 Discharge Plan Patient Name: ROXI OROSCO Facility: [facility]:[place] : 1960 Planned Disposition: Anticipated Discharge Date: Discharge Date: Expected LOS: Initial Reviewer: [email or web address] Initial Review Date: 02/09/2019 Generated: 02/12/19 5:57 pm Comments DCP- Discharge Planning Updated by [email or web address]: Claudette Nino on 02/12/19 3:[address] Patient Name: ROXI OROSCO Admission Status: ER Accout number: [id number] Admission Date: 02-09-2019 : 1960 Admission Diagnosis: Attending: HANNA SOTO Current LOS: 3 Anticipated DC Date: Planned Disposition: Primary Insurance: MEDICARE PART A ONLY Discharge Planning Comments: CM met with patient to complete initial dc planning assessment. CM educated patient on the CM role and verbal consent given by patient to complete assessment. Patient lives at home alone where she is independent with her care. At discharge patient plans to return home and feels this is a safe discharge. CM discussed availability of home health, rehab services, and medical equipment. Her family will drive her home. Patient has a nebulizer, Bipap, and home o2 (unknown provider ) Patient denied known discharge needs at this time. CM will continue to follow and will assist as needed with dc plans/needs. Budget Technician: Claudette Nino DCPIA - Discharge Planning Initial Assessment Updated by [email or web address]: Claudette Nino on 02/12/19 4:52 pm * Is the patient Alert and Oriented? Yes * How many steps to enter\exit or inside your home? * PCP [facility] * Pharmacy [facility] * Preadmission Environment Home Alone * ADLs Independent * Other Equipment HOME 02, NEBULIZER, BIPAP (UNKNOWN PROVIDER) BSC, SC, WALKER * List name and contact numbers for known caregivers / representatives who currently or will assist patient after discharge: JUANCARLOS GARCIA - [facility]- [phone] * Verbal permission to speak to the caregivers and representatives has been obtained from the patient. Yes * Community resources currently utilized None * Additional services required to return to the preadmission environment? No * Can the patient safely return to the preadmission environment? Yes * Has this patient been hospitalized within the prior 30 days at any hospital? No Patient Name: ROXI OROSCO Page [id number] at 1657 All edits/amendments must be made on the electronic document DICTATION DATE: 02/12/191655 WOOD SETTER: MERY 02/12/191655 RPT#: [id number] MD DATE: STATUS: ADM IN [facility] [address] [place] [address] END OF REPORT
--- NOTE | 2019-02-12 17:17 | NUR ---
called caf for 2 more iced teas per patient request. warm wash rag and cup of ice provided.
--- NOTE | 2019-02-12 19:00 | NUR ---
REASSESSMENT COMLPETE PER FLOW SHEET. VSS. NO NEW CHANGES PT RESTING COMFORTABLY WILL CONTINUE TO MONITOR
--- NOTE | 2019-02-12 20:00 | NUR ---
PT GIVEN ICE CREAM PER REQUEST DENIES NEEDS
--- NOTE | 2019-02-12 20:30 | NUR ---
DENISE Ray PER REQUEST
--- NOTE | 2019-02-12 21:00 | NUR ---
PT ASSISTED UP TO BEDSIDE COMMODE 150CC VOID NOTED
--- NOTE | 2019-02-12 23:00 | NUR ---
REASSESSMENT COMPLETE PER FLOW SHEET. VSS. NO NEW CHANGES PT RESTING COMFORTABLY WILL CONTINUE TO MONITOR
[2019-02-13] VITALS (24 sets, daily range): BP systolic 94–160; BP diastolic 51–99
--- NOTE | 2019-02-13 01:00 | NUR ---
ASSISTED OOB TO TO BEDSIDE COMMODE. LARGE BM NOTED
--- NOTE | 2019-02-13 03:05 | NUR ---
REASSESSMENT COMPLETE PER FLOW SHEET VSS NO NEW CHAGNES PT RESTING COMFORTABLY WILL CONTINUE TO MONITOR
[2019-02-13 04:22] LABS: BASOPHILS 0.9 % (0-2); EOSINOPHILS 3.3 % (0-7); HEMATOCRIT 27.7 % (36.0-48.0); IMMATURE GRANULOCYTES 5.3 % (0-5); LYMPHOCYTES 9.1 % (15-50); MCH 23.4 pg (26.0-34.0); MEAN PLATELET VOLUME 9.7 fL (7.4-10.4); MONOCYTES 10.2 % (2-11); NEUTROPHILS 71.2 % (40-80); PLATELET COUNT 477 10x3/uL (130-400); RBC 3.08 10x6/uL (4.00-5.40); RDW 19.7 % (11.5-14.5); WBC 12.7 10x3/uL (4.8-10.8)
[2019-02-13 04:52] LABS: ANION GAP 3.9 mmol/L (8-16); CALCIUM 8.8 mg/dL (8.5-10.1); CREATININE - SERUM 1.1 mg/dL (0.6-1.3); POTASSIUM - SERUM 3.2 mmol/L (3.5-5.1)
[2019-02-13 05:08] LABS: CARBON DIOXIDE 42.3 mmol/L (21.0-32.0); HEMOGLOBIN 7.2 g/dL (12-16); MCV 89.9 fL (80.0-100.0)
--- NOTE | 2019-02-13 05:14 | NUR ---
Critical Result Type: C02 Critical Result Value: 42.3 Time Nurse Notified: 05 Name of Physician and Time Called: Physician Notified at: Physician NOT Notified with Reason: PT CO2 < PREVIOUS RESULT Comments: Read Back and Verified By: [id number]
--- NOTE | 2019-02-13 06:16 | NUR ---
DR SOTO GROUP PAGED IN REGAURDS TO CRITICAL H/H
--- NOTE | 2019-02-13 06:34 | NUR ---
Critical Result Type: HGB Critical Result Value: 7.2 Time Nurse Notified: 0450 Name of Physician and Time Called: NATHANIEL MICHAEL/DR RUSSO Physician Notified at: 0620 Physician NOT Notified with Reason: Comments: NO NEW ORDERS Read Back and Verified By: MELODIE YANG
--- NOTE | 2019-02-13 06:59 | NUR ---
patient alert and oriented. ambulatory. no acute distress. on side of bed doing breathing treatment. respiratory at bedside. denies pain and needs at this time. patient had a good amount of stool from bowel movement last night. oral care provided at this time. bilat expiratory wheeze heard of auscultation. scabs generalized on body. iv inufsing to kvo. vss. nasal cannula at this time. will continue to monitor.
--- NOTE | 2019-02-13 09:15 | NUR ---
patient had incontinent episode. provided wash rags to bathe herself.
--- NOTE | 2019-02-13 09:30 | NUR ---
PATIENT ON BIPAP. RESTING. NO ACUTE DISTRESS. SLEEPING. AROUSES WITH SPEECH. VSS. BED LOW AND LOCKED. NEW IV STARTED ON R FOREARM DUE TO OTHER ONE WAS INFILTRATED. WILL CONTINUE TO MONITOR.
--- NOTE | 2019-02-13 12:38 | NUR ---
PATIENT DIFFICULT TO AROUSE. BLOOD SUGAR 169. ATTEMPTING TO CHECK H AND H ANDGET ABG APPROVAL FROM DR STALLWORTH
--- NOTE | 2019-02-13 12:40 | NUR ---
VERBAL ORDER FOR H AND H FROM DR STALLWORTH
[2019-02-13 12:43] LABS: HEMATOCRIT 26.9 % (36.0-48.0)
[2019-02-13 12:53] LABS: HEMOGLOBIN 7.1 g/dL (12-16)
--- NOTE | 2019-02-13 15:58 | NUR ---
FAMILY AT BEDSIDE. UDPATE GIVEN. WILL CONTINUE TO MONITOR.
--- NOTE | 2019-02-13 15:58 | NUR ---
ROMÁN SWITCHED TO NASAL CANNULA
--- NOTE | 2019-02-13 17:21 | NUR ---
lab at bedside
--- NOTE | 2019-02-13 17:45 | NUR ---
patient put in bed. bipap on. patient ambulates from bed to bedside commode. will continue to monitor patient.
--- NOTE | 2019-02-13 19:00 | NUR ---
SHIFT ASSESSMENT COMPLETED, PT CARE ASSUMED, MONITORS ON AND WORKING, VITALS STABLE. PT AWAKE AND ALERT, BIPAP ON. CALL LIGHT WITHIN REACH, SEE FLOW SHEET FOR FURTHER DETAILS. WILL CONTINUE TO OBSERVE.
--- NOTE | 2019-02-13 21:00 | NUR ---
PT UP TO BEDSIDE COMMODE AD DALILA, CALL LIGHT WITHIN REACH, WILL CONTINUE TO OBSERVE.
--- NOTE | 2019-02-13 23:00 | NUR ---
PT SITTING UP AT BEDSIDE, MONITORS ON AND WORKING, VITALS STABLE, NO FURTHER CHANGES AT THIS TIME, SEE FLOW SHEET FOR FURTHER DETAILS. WILL CONTINUE TO OBSERVE.
[2019-02-14] VITALS (22 sets, daily range): BP systolic 117–168; BP diastolic 52–90
--- NOTE | 2019-02-14 01:00 | NUR ---
PT RESTING, MONITORS ON AND WORKING, PT CONTINUES TO BE ON BIPAP. NO SIGNS/SYMPTOMS OF PAIN OR DISCOMFORT NOTED AT THIS TIME, CALL LIGHT WITHIN REACH, WILL CONTINUE TO OBSERVE.
--- NOTE | 2019-02-14 03:00 | NUR ---
NO CHANGES, SEE FLOW SHEET FOR FURTHER DETAILS. MONITORS ON AND WORKING, VITALS STABLE, CALL LIGHT WITHIN REACH, WILL CONTINUE TO OBSERVE.
[2019-02-14 03:42] LABS: BASOPHILS 0.9 % (0-2); EOSINOPHILS 3.4 % (0-7); HEMATOCRIT 27.5 % (36.0-48.0); IMMATURE GRANULOCYTES 5.4 % (0-5); LYMPHOCYTES 8.4 % (15-50); MCH 23.8 pg (26.0-34.0); MCHC 26.9 g/dL (31.0-37.0); MCV 88.4 fL (80.0-100.0); MEAN PLATELET VOLUME 9.7 fL (7.4-10.4); MONOCYTES 10.5 % (2-11); NEUTROPHILS 71.4 % (40-80); PLATELET COUNT 416 10x3/uL (130-400); RBC 3.11 10x6/uL (4.00-5.40); RDW 19.8 % (11.5-14.5); WBC 10.7 10x3/uL (4.8-10.8)
[2019-02-14 03:43] LABS: HEMOGLOBIN 7.4 g/dL (12-16)
[2019-02-14 03:54] LABS: ANION GAP 3.1 mmol/L (8-16); CALCIUM 8.7 mg/dL (8.5-10.1); MAGNESIUM - SERUM 1.9 mg/dL (1.8-2.4); PHOSPHOROUS 3.4 mg/dL (2.5-4.9); POTASSIUM - SERUM 3.2 mmol/L (3.5-5.1)
[2019-02-14 04:05] LABS: CARBON DIOXIDE 43.1 mmol/L (21.0-32.0)
--- NOTE | 2019-02-14 05:00 | NUR ---
PT SITTING UP ON SIDE OF BED, MONITORS ON AND WORKING, VITALS STABLE. CALL LIGHT WITHIN REACH, WILL CONTINUE TO OBSERVE.
--- NOTE | 2019-02-14 06:57 | NUR ---
report received from chani benites. no acute distress during this time. patient sittin on side of bed. denies needs and pain. states she is awaiting breakfast. no abg ordered this morning to determine co2 decrease or increase. expiratory wheezes heard on auscultation in upper lobes bilat. diminished lower lobes. skin pink. scabs generalized. patient is alert and oriented. states she felt alot better today. patient on nasal cannula. oral care provided this morning. bedside commode right beside bed. call light within reach. bed low and locked. bed side table within reach with personal belongings. instructed to not get up wtihout letting the nurse know.
--- NOTE | 2019-02-14 09:14 | NUR ---
NUTRITION F/U PT CURRENTLY RESTING. HAS BEEN TOLERATING DIABETIC DIET WITH 50 TO 100% INTAKE RECENT MEALS. WILL CONTINUE TO PROVIDE DIABETIC DIET, MONITOR PO INTAKE. RD FOLLOWING
--- NOTE | 2019-02-14 11:04 | NUR ---
spoke with dr aguilera about hgb and hct. no orders given to infuse
--- NOTE | 2019-02-14 13:50 | NUR ---
dr matthews aware of hgb and hct
--- NOTE | 2019-02-14 15:05 | NUR ---
patients family complained of dirty floors. evs called. they cleaned the room. demanded bedside commode be emptied out. measured and emptied out.
--- NOTE | 2019-02-14 15:35 | NUR ---
PATIENT PLACED ON BEDSIDE COMMODE
--- NOTE | 2019-02-14 17:30 | NUR ---
grant put on nasal cannula tolerating well. no acute distress. lunch tray at bedside. denies needs and pain. bed low and locked. bedsdie commode within reach. bed side tabble within reach. bilat wheezes heard on auscultation. palp pulses bilat. alert and oriented. iron hanging. will continue to monitor hai
--- NOTE | 2019-02-14 19:00 | NUR ---
SHIFT ASSESSMENT COMPLETE. VS STABLE. NO VISUAL CUES OF DISTRESS NOTED. WILL MONITOR.
[2019-02-14 19:08] LABS: AEROBE ID Final report (())
--- NOTE | 2019-02-14 21:00 | NUR ---
VS STABLE. WILL CONTINUE TO MONITOR.
--- NOTE | 2019-02-14 21:00 | NUR ---
VS STABLE. WILL MONITOR.
--- NOTE | 2019-02-14 23:00 | NUR ---
VS STABLE. WILL CONTINUE TO MONITOR.
[2019-02-15] VITALS (14 sets, daily range): BP systolic 111–145; BP diastolic 43–75
--- NOTE | 2019-02-15 01:00 | NUR ---
VS STABLE. WILL CONTINUE TO MONITOR.
--- NOTE | 2019-02-15 03:00 | NUR ---
VS STABLE. WILL CONTINUE TO MONITOR.
[2019-02-15 04:32] LABS: BASOPHILS 0.7 % (0-2); EOSINOPHILS 3.4 % (0-7); HEMATOCRIT 30.3 % (36.0-48.0); HEMOGLOBIN 8.1 g/dL (12-16); IMMATURE GRANULOCYTES 5.7 % (0-5); LYMPHOCYTES 7.9 % (15-50); MCH 23.6 pg (26.0-34.0); MCHC 26.7 g/dL (31.0-37.0); MCV 88.3 fL (80.0-100.0); MEAN PLATELET VOLUME 10.1 fL (7.4-10.4); MONOCYTES 9.6 % (2-11); NEUTROPHILS 72.7 % (40-80); PLATELET COUNT 454 10x3/uL (130-400); RBC 3.43 10x6/uL (4.00-5.40); RDW 20.4 % (11.5-14.5); WBC 11.3 10x3/uL (4.8-10.8)
[2019-02-15 05:00] LABS: ALBUMIN 2.4 g/dL (3.4-5.0); ANION GAP 5.4 mmol/L (8-16); BILIRUBIN - TOTAL 0.58 mg/dL (0.2-1.3); CALCIUM 9.2 mg/dL (8.5-10.1); POTASSIUM - SERUM 3.1 mmol/L (3.5-5.1); PROTEIN - SERUM 7.5 g/dL (6.4-8.2)
--- NOTE | 2019-02-15 05:00 | NUR ---
VS STABLE. WILL CONTINUE TO MONITOR.
[2019-02-15 05:24] LABS: CARBON DIOXIDE 40.7 mmol/L (21.0-32.0)
--- NOTE | 2019-02-15 10:40 | EC ---
PATIENT:ROXI OROSCO DATE OF SERVICE: 02/09/19 SEX: F MEDICAL RECORD: [id number] DATE OF : 62 LOCATION:[facility] D230 AGE OF PATIENT: 59 ADMISSION DATE: 02/09/19 REFERRING PHYSICIAN: INTERPRETING PHYSICIAN: SARY RAMSEY MD ECHOCARDIOGRAM REPORT ECHO CHARGES 4 ECHO COMPLETE Date: 02/09/19 CLINICAL DIAGNOSIS: CHF ECHOCARDIOGRAPHIC MEASUREMENTS (adult normal given) AC root (d.<3.7cm) 3.2 cm LV Septum d (<1.2 cm> 1.4 cm Valve Excursion 1.3 cm LV Septum (systole) 1.7 cm Left Atria (s.<4.0cm> 3.4 cm LVPW d(<1.2cm) 1.5 cm RV (d.<2.3cm) 3.5 cm LVPW (sytole) 2.0 cm LV diastole(<5.6CM) 4.8 cm MV E-F(>70mm/sec) cm LV systole 3.4 cm LVOT Diameter 1.7 cm MV exc.(>10mm) cm Est.ejection fraction (50-75%) % DOPPLER: LVIT cm/sec A 145 cm/sec E 179 cm/sec LA cm/sec RVSP 72.0 mmHg LVOT 157 cm/sec AOP1/2T m/s Asc. Ao 309 cm/sec RVOT 86.0 cm/sec RA cm/sec PA 78.0 cm/sec AV Gradient Peak 38.3 mmHg AV Mean 23.0 mmHg AV Area 1.2 cm MV Gradient Peak 16.0 mmHg MV Mean 5.0 mmHg MV Area cm COMMENTS: Manager Search Engine: Jay ZABALAOE Nicker And Breaker: 1 Dr. Ramsey TAPE# PACS Pericardial Effusion N DATE OF SERVICE: 02/09/2019 FINDINGS: 1. Left ventricular chamber size is within normal limits. Left ventricular systolic function is normal. Overall ejection fraction estimated at 55% to 60%. 2. Left atrium is within normal limits at 3.4 cm. Right atrium and right ventricular chamber sizes are moderately dilated. 3. Valvular structures: Aortic valve demonstrates mild calcific aortic stenosis, valve area calculates to 1.2 cm-squared. There is a gradient of 38 mm across the valve. The remaining valvular structures have normal structure and ECHOCARDIOGRAM REPORT [id number] DEVLIN. 4. Doppler interrogation elsewise reveals trace mitral regurgitation, no other valvular insufficiency or stenosis. 5. No evidence of pericardial effusion or left ventricular thrombus; however, pulmonary systolic pressure is significantly elevated estimated at 72 mmHg. TRANSINT:[id number] Voice Confirmation ID: [id number] DOCUMENT ID: [id number] SARY RAMSEY MD at 1040 CC: [id number] DICTATION DATE: 02/09/191654 COURT MAGISTRATE: 02/09/192033 ADM IN [facility] [address] [id number]
--- NOTE | 2019-02-15 15:08 | NUR ---
PER GISEL MATHIAS TO TRANSFER PT TO FLOOR.
[2019-02-16 00:30] VITALS: BP 139/53
[2019-02-16 05:19] VITALS: BP 142/70
[2019-02-16 06:45] LABS: ALBUMIN 2.6 g/dL (3.4-5.0); BILIRUBIN - TOTAL 0.38 mg/dL (0.2-1.3); CALCIUM 9.3 mg/dL (8.5-10.1); CARBON DIOXIDE 38.1 mmol/L (21.0-32.0); CREATININE - SERUM 0.9 mg/dL (0.6-1.3); POTASSIUM - SERUM 3.1 mmol/L (3.5-5.1); PROTEIN - SERUM 7.2 g/dL (6.4-8.2)
[2019-02-16 06:47] LABS: BASOPHILS 0.6 % (0-2); EOSINOPHILS 3.5 % (0-7); HEMOGLOBIN 8.4 g/dL (12-16); IMMATURE GRANULOCYTES 4.1 % (0-5); LYMPHOCYTES 8.6 % (15-50); MCH 23.9 pg (26.0-34.0); MCHC 27.1 g/dL (31.0-37.0); MCV 88.3 fL (80.0-100.0); MEAN PLATELET VOLUME 10.2 fL (7.4-10.4); MONOCYTES 9.3 % (2-11); NEUTROPHILS 73.9 % (40-80); PLATELET COUNT 394 10x3/uL (130-400); RBC 3.51 10x6/uL (4.00-5.40); RDW 20.8 % (11.5-14.5)
--- NOTE | 2019-02-16 08:00 | NUR ---
ALERT AND ORIENTED X4. BREATH SOUNDS DIMINISHED TO BLQ POSTERIOR. IV RESITED TO LEFT FOREARM WITH IVF INFUSING AT PRESCRIBED RATE. PT UP ADLIB AND ENCOURAGED TO USE CALL LIGHT FOR ASSIST.
[2019-02-16 08:50] VITALS: BP 153/64
[2019-02-16 12:28] VITALS: BP 135/58
--- NOTE | 2019-02-16 14:39 | NUR ---
PT RECEIVED SHOWER WITH NICOTINE PATCH REMOVED. PHARMACY NOTIFIED WITH REMOVAL OF ANOTHER PATCH
[2019-02-16 16:58] VITALS: BP 123/62
--- NOTE | 2019-02-16 19:00 | NUR ---
BEDSIDE REPORT RECEIVED AND CARE OF PT ASSUMED. PT SITTING UP ON SIDE OF BED. O2 IN USE VIA NC AT 3L. IV TO LEFT WRIST SALINE LOCKED. WILL MONITOR FOR NEEDS.
[2019-02-16 19:30] VITALS: BP 115/55
--- NOTE | 2019-02-16 21:15 | NUR ---
HS MEDICATIONS GIVEN. WILL CONTINUE TO MONITOR FOR NEEDS.
--- NOTE | 2019-02-16 21:35 | NUR ---
FLUSHED IV AND IT IS LEAKING. REMOVED AND RE-SITED TO RIGHT FA USING 20 GAUGE CATHETER.
[2019-02-17 00:30] VITALS: BP 110/52
--- NOTE | 2019-02-17 03:36 | NUR ---
CHANGED ALL IV TUBING PER PROTOCAL.
[2019-02-17 04:57] VITALS: BP 113/62
[2019-02-17 06:40] LABS: BASOPHILS 0.7 % (0-2); EOSINOPHILS 3.6 % (0-7); HEMATOCRIT 31.4 % (36.0-48.0); HEMOGLOBIN 8.7 g/dL (12-16); IMMATURE GRANULOCYTES 3.1 % (0-5); LYMPHOCYTES 8.6 % (15-50); MCH 24.8 pg (26.0-34.0); MCHC 27.7 g/dL (31.0-37.0); MCV 89.5 fL (80.0-100.0); MEAN PLATELET VOLUME 10.3 fL (7.4-10.4); MONOCYTES 9.3 % (2-11); NEUTROPHILS 74.7 % (40-80); PLATELET COUNT 360 10x3/uL (130-400); RBC 3.51 10x6/uL (4.00-5.40); RDW 21.6 % (11.5-14.5); WBC 12.3 10x3/uL (4.8-10.8)
[2019-02-17 07:32] LABS: ALBUMIN 2.7 g/dL (3.4-5.0); ANION GAP 8.2 mmol/L (8-16); BILIRUBIN - TOTAL 0.41 mg/dL (0.2-1.3); CALCIUM 8.8 mg/dL (8.5-10.1); CARBON DIOXIDE 37.4 mmol/L (21.0-32.0); CREATININE - SERUM 0.9 mg/dL (0.6-1.3); POTASSIUM - SERUM 3.6 mmol/L (3.5-5.1); PROTEIN - SERUM 6.8 g/dL (6.4-8.2)
--- NOTE | 2019-02-17 09:00 | NUR ---
ALERT AND ORIENTED X4 WITH O2 3. N/C. HRRR WITH MURMOR PRESENT. BREATH SOUNDS DIMINISHED TO BUQ AND BLQ POSTERIOR. REFUSES SCD'S THIS MORNING DUE TO GETTING UP AT TIMES. IV TO RT. F/A WITH NO S/S OF INFECTION/INFILTRATION NOTED. PT WEARS BIPAP WHEN SLEEPING. ENCOURAGED TO USE CALL LIGHT FOR ASSIST.
[2019-02-17 09:12] VITALS: BP 132/46
[2019-02-17 13:04] VITALS: BP 111/48
[2019-02-17 16:36] VITALS: BP 108/63
--- NOTE | 2019-02-17 19:00 | NUR ---
BEDSIDE REPORT RECEIVED AND CARE OF PT ASSUMED. PT SITTING UP IN CHAIR AT THIS TIME WATCHING TV. IV TO RIGHT FA SALINE LOCKED. O2 IN USE VIA NC AT 3L. WILL MONITOR FOR NEEDS.
[2019-02-17 20:00] VITALS: BP 122/48
--- NOTE | 2019-02-17 20:06 | MORECARE ---
CASE MANAGEMENT DISCHARGE SUMMARY PATIENT: ROXI OROSCO UNIT: [id number] ADM DATE: 02/09/19 AGE: 59 : 62 SEX: F ROOM/BED: D.2234 AUTHOR: KHADAR,DOC PHYSICIAN: REFERRING PHYSICIAN: HANNA SOTO MD DATE OF SERVICE: 02/17/19 Discharge Plan Patient Name: ROXI OROSCO Facility: [facility]:[place] : 1960 Planned Disposition: Anticipated Discharge Date: Discharge Date: Expected LOS: Initial Reviewer: [email or web address] Initial Review Date: 02/09/2019 Generated: 02/17/19 9:05 pm Comments DCP- Discharge Planning Updated by [email or web address]: Shireen Padgett on 02/17/19 7:[address] CM met with patient to begin initial discharge plan. Patient is in agreement to proceed with assessment. Patient lives alone in her home. She has 4/2 steps w/rails entering her home. PCP: Dr. Lupis Begum. [facility]acy: [facility]. 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 DME: home 02, nebulizer, walker, BP cuff, Pulse ox. She is not sure who her DME provider is, but will ask her sister to send her a picture of her 02 machine. Patient gives permission to speak with family members. Denies use of Community resources. Patient states she feels safe returning to he home environment. Denies being hospitalized within past 30 days. Emergency contact: Juancarlos Perez (sister) [phone]. Patient states either her sister or her mother will drive her home at time of discharge. CM will revisit to obtain name of 02 provided in order to arrange Trilogy. CM will assist with further dc needs/plans on a PRN basis. DCP- Discharge Planning Updated by [email or web address]: Claudette Nino on 02/12/19 3:[address] Patient Name: ROXI OROSCO Admission Status: ER Accout number: [id number] Admission Date: 02-09-2019 : 1960 Admission Diagnosis: Attending: HANNA SOTO Current LOS: 3 Anticipated DC Date: Planned Disposition: Primary Insurance: MEDICARE PART A ONLY Discharge Planning Comments: CM met with patient to complete initial dc planning assessment. CM educated patient on the CM role and verbal consent given by patient to complete assessment. Patient lives at home alone where she is independent with her care. At discharge patient plans to return home and feels this is a safe discharge. CM discussed availability of home health, rehab services, and medical equipment. Her family will drive her home. Patient has a nebulizer, Bipap, and home o2 (unknown provider ) Patient denied known discharge needs at this time. CM will continue to follow and will assist as needed with dc plans/needs. Senior Oracle Database Administrator: Claudette Nino DCPIA - Discharge Planning Initial Assessment Updated by [email or web address]: Claudette Nino on 02/12/19 4:52 pm * Is the patient Alert and Oriented? Yes * How many steps to enter\exit or inside your home? * PCP LUPIS BEGUM * Pharmacy [facility] * Preadmission Environment Home Alone * ADLs Independent * Other Equipment HOME 02, NEBULIZER, BIPAP (UNKNOWN PROVIDER) BSC, SC, WALKER * List name and contact numbers for known caregivers / representatives who currently or will assist patient after discharge: JUANCARLOS PEREZ [facility] [phone] * Verbal permission to speak to the caregivers and representatives has been obtained from the patient. Yes * Community resources currently utilized None * Additional services required to return to the preadmission environment? No * Can the patient safely return to the preadmission environment? Yes * Has this patient been hospitalized within the prior 30 days at any hospital? No Last DP export: 02/12/19 3:57 p Patient Name: ROXI OROSCO Page [id number] at 2006 All edits/amendments must be made on the electronic document DICTATION DATE: 02/17/192004 ELECTRONIC INDUCTION HARDENER: MERY 02/17/192004 RPT#: [id number] DC DATE: STATUS: ADM IN [facility] [address] [place] [address] END OF REPORT
--- NOTE | 2019-02-17 20:47 | NUR ---
HS MEDICATIONS GIVEN TO INCLUDE MORPHINE 2 MG IVP PER REQUEST FOR PAIN. FSBS 157 THIS CHECK. WILL CONTINUE TO MONITOR FOR NEEDS.
[2019-02-18] VITALS: BP 120/57
--- NOTE | 2019-02-18 00:24 | NUR ---
PT RESTING ON LEFT SIDE WITH BIPAP IN PLACE AND EYES CLOSED. IV TO RIGHT FA AT KVO. WILL CONTINUE TO MONITOR FOR NEEDS.
[2019-02-18 01:29] VITALS: BP 131/65
[2019-02-18 04:00] VITALS: BP 138/54
[2019-02-18 05:48] LABS: BASOPHILS 0.7 % (0-2); EOSINOPHILS 3.4 % (0-7); HEMOGLOBIN 9.6 g/dL (12-16); IMMATURE GRANULOCYTES 2.2 % (0-5); LYMPHOCYTES 10.4 % (15-50); MCH 24.7 pg (26.0-34.0); MCHC 27.4 g/dL (31.0-37.0); MEAN PLATELET VOLUME 10.5 fL (7.4-10.4); MONOCYTES 7.4 % (2-11); NEUTROPHILS 75.9 % (40-80); PLATELET COUNT 375 10x3/uL (130-400); RBC 3.89 10x6/uL (4.00-5.40); RDW 22.6 % (11.5-14.5); WBC 12.6 10x3/uL (4.8-10.8)
[2019-02-18 06:13] LABS: ALBUMIN 2.8 g/dL (3.4-5.0); ANION GAP 8.4 mmol/L (8-16); BILIRUBIN - TOTAL 0.52 mg/dL (0.2-1.3); CARBON DIOXIDE 35.4 mmol/L (21.0-32.0); CREATININE - SERUM 0.9 mg/dL (0.6-1.3); POTASSIUM - SERUM 3.8 mmol/L (3.5-5.1); PROTEIN - SERUM 7.7 g/dL (6.4-8.2)
--- NOTE | 2019-02-18 08:00 | NUR ---
ALERT AND ORIENTED X4. PT STATES SLEPT GOOD AND FEELS BETTER THAN SHE HAS IN A LONG TIME. 02 3. N/C WITH INSPIRAQTORY WHEEZE NOTED TO LUQ POSTERIOR.PT OBESE WITH PANNUS SITTING UP ON SIDE OF BED. DENEIS ANY PAIN OR DISCOMFORT. ENCOURAGED TO USE CALL LIGHT FOR ASSIST. IV INTACT TO RT. F/A
[2019-02-18 08:36] VITALS: BP 107/57
[2019-02-18 11:58] VITALS: BP 156/67
--- NOTE | 2019-02-18 17:31 | MORECARE ---
CASE MANAGEMENT DISCHARGE SUMMARY PATIENT: ROXI MARTIN UNIT: [id number] ADM DATE: 02/09/19 AGE: 59 : 62 SEX: F ROOM/BED: D.2234 AUTHOR: KHADAR,DOC PHYSICIAN: REFERRING PHYSICIAN: HANNA SOTO MD DATE OF SERVICE: 02/18/19 Discharge Plan Patient Name: ROXI MARTIN Facility: [facility]:[place] : 1960 Planned Disposition: Anticipated Discharge Date: Discharge Date: Expected LOS: Initial Reviewer: [email or web address] Initial Review Date: 02/09/2019 Generated: 02/18/19 6:30 pm Comments DCP- Discharge Planning Updated by [email or web address]: Shireen Padgett on 02/17/19 7:[address] CM met with patient to begin initial discharge plan. Patient is in agreement to proceed with assessment. Patient lives alone in her home. She has 4/2 steps w/rails entering her home. PCP: Dr. Lupis Begum. Pharmacy: [facility]. 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 DME: home 02, nebulizer, walker, BP cuff, Pulse ox. She is not sure who her DME provider is, but will ask her sister to send her a picture of her 02 machine. Patient gives permission to speak with family members. Denies use of Community resources. Patient states she feels safe returning to he home environment. Denies being hospitalized within past 30 days. Emergency contact: Juancarlos Perez (sister) [phone]. Patient states either her sister or her mother will drive her home at time of discharge. CM will revisit to obtain name of 02 provided in order to arrange Trilogy. CM will assist with further dc needs/plans on a PRN basis. DCP- Discharge Planning Updated by [email or web address]: Claudette Nino on 02/12/19 3:[address] Patient Name: ROXI MARTIN Admission Status: ER Accout number: [id number] Admission Date: 02-09-2019 : 1960 Admission Diagnosis: Attending: HANNA SOTO Current LOS: 3 Anticipated DC Date: Planned Disposition: Primary Insurance: MEDICARE PART A ONLY Discharge Planning Comments: CM met with patient to complete initial dc planning assessment. CM educated patient on the CM role and verbal consent given by patient to complete assessment. Patient lives at home alone where she is independent with her care. At discharge patient plans to return home and feels this is a safe discharge. CM discussed availability of home health, rehab services, and medical equipment. Her family will drive her home. Patient has a nebulizer, Bipap, and home o2 (unknown provider ) Patient denied known discharge needs at this time. CM will continue to follow and will assist as needed with dc plans/needs. Camera Prototyping Engineer: Claudette Mica DCPIA - Discharge Planning Initial Assessment Updated by [email or web address]: Claudette Nino on 02/12/19 4:52 pm * Is the patient Alert and Oriented? Yes * How many steps to enter\exit or inside your home? * PCP LUPIS BEGUM * Pharmacy [facility] * Preadmission Environment Home Alone * ADLs Independent * Other Equipment HOME 02, NEBULIZER, BIPAP (UNKNOWN PROVIDER) BSC, SC, WALKER * List name and contact numbers for known caregivers / representatives who currently or will assist patient after discharge: JUANCARLOS PEREZ [facility] [phone] * Verbal permission to speak to the caregivers and representatives has been obtained from the patient. Yes * Community resources currently utilized None * Additional services required to return to the preadmission environment? No * Can the patient safely return to the preadmission environment? Yes * Has this patient been hospitalized within the prior 30 days at any hospital? No Coverage Notice Reviewer: [email or web address] Roxane Padgett Notice Issued Date-Time: 02/17/2019 19:50 Notice Type: IM Discharge Notice Notice Delivered To: Patient Relationship to Patient: Self Assembly Detailer Name: Roxi Martin Delivery Method: HAND - Hand Delivered Ricarda Days: Prior Verbal Notification: Recipient Understood Notice: Yes Recipient Signature: Yes Med Rec Note Co-signed by Attending: Coverage Notice Comment: DC IMM delivered to and signed by patient. Original given to patient and one on chart. Reviewer: [email or web address] Roxane Padgett Notice Issued Date-Time: 02/17/2019 20:05 Notice Type: Patient Choice Letter Notice Delivered To: Patient Relationship to Patient: Self Assembly Detailer Name: Roxi Martin Delivery Method: HAND - Hand Delivered Ricarda Days: Prior Verbal Notification: Recipient Understood Notice: Yes Recipient Signature: Yes Med Rec Note Co-signed by Attending: Coverage Notice Comment: Patient Choice signed by patient with no preference for DME. Last DP export: 02/17/19 7:06 Patient Name: ROXI MARTIN Page [id number] at 1731 All edits/amendments must be made on the electronic document DICTATION DATE: 02/18/191729 MANUAL WINDER: MERY 02/18/191729 RPT#: [id number] DC DATE: STATUS: ADM IN [facility] [address] [place] [address] END OF REPORT
--- NOTE | 2019-02-18 17:38 | MORECARE ---
CASE MANAGEMENT DISCHARGE SUMMARY PATIENT: ROXI MARTIN UNIT: [id number] ADM DATE: 02/09/19 AGE: 59 : 62 SEX: F ROOM/BED: D.2234 AUTHOR: PANFILO RUBALCAVA PHYSICIAN: REFERRING PHYSICIAN: HANNA SOTO MD DATE OF SERVICE: 02/18/19 Discharge Plan Patient Name: ROXI MARTIN Facility: [facility]:[place] : 1960 Planned Disposition: Anticipated Discharge Date: 02/19/19 Discharge Date: Expected LOS: 10 Initial Reviewer: [email or web address] Initial Review Date: 02/09/2019 Generated: 02/18/19 6:38 pm Comments DCP- Discharge Planning Updated by [email or web address]: Edie Menon on 02/18/19 4:[address] Patient Name: ROXI MARTIN Admission Status: ER Accout number: [id number] Admission Date: 02-09-2019 : 1960 Admission Diagnosis: Attending: HANNA SOTO Current LOS: 9 Anticipated DC Date: Planned Disposition: Primary Insurance: MEDICARE PART A ONLY Discharge Planning Comments: CM FAXED DOCUMENTS TO [facility] FOR A TRILOGY. CM TO FOLLOW AND ASSIST NEEDED. ANTICIPATE DC TOMORROW. Sourcing Internship: Edie Menon DCP- Discharge Planning Updated by [email or web address]: Shireen Padgett on 02/17/19 7:[address] CM met with patient to begin initial discharge plan. Patient is in agreement to proceed with assessment. Patient lives alone in her home. She has 4/2 steps w/rails entering her home. PCP: Dr. Lupis Begum. [facility]. 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 DME: home 02, nebulizer, walker, BP cuff, Pulse ox. She is not sure who her DME provider is, but will ask her sister to send her a picture of her 02 machine. Patient gives permission to speak with family members. Denies use of Community resources. Patient states she feels safe returning to he home environment. Denies being hospitalized within past 30 days. Emergency contact: Juancarlos Perez (sister) [phone]. Patient states either her sister or her mother will drive her home at time of discharge. CM will revisit to obtain name of 02 provided in order to arrange Trilogy. CM will assist with further dc needs/plans on a PRN basis. DCP- Discharge Planning Updated by [email or web address]: Claudette Nino on 02/12/19 3:[address] Patient Name: ROXI MARTIN Admission Status: ER Accout number: [id number] Admission Date: 02-09-2019 : 1960 Admission Diagnosis: Attending: HANNA SOTO Current LOS: 3 Anticipated DC Date: Planned Disposition: Primary Insurance: MEDICARE PART A ONLY Discharge Planning Comments: CM met with patient to complete initial dc planning assessment. CM educated patient on the CM role and verbal consent given by patient to complete assessment. Patient lives at home alone where she is independent with her care. At discharge patient plans to return home and feels this is a safe discharge. CM discussed availability of home health, rehab services, and medical equipment. Her family will drive her home. Patient has a nebulizer, Bipap, and home o2 (unknown provider ) Patient denied known discharge needs at this time. CM will continue to follow and will assist as needed with dc plans/needs. Sourcing Internship: Claudette Nino DCPIA - Discharge Planning Initial Assessment Updated by [email or web address]: Claudette Nino on 02/12/19 4:52 pm * Is the patient Alert and Oriented? Yes * How many steps to enter\exit or inside your home? * PCP LUPIS BEGUM * [facility] * Preadmission Environment Home Alone * ADLs Independent * Other Equipment HOME 02, NEBULIZER, BIPAP (UNKNOWN PROVIDER) BSC, SC, WALKER * List name and contact numbers for known caregivers / representatives who currently or will assist patient after discharge: JUANCARLOS PEREZ - SISTER- [phone] * Verbal permission to speak to the caregivers and representatives has been obtained from the patient. Yes * Community resources currently utilized None * Additional services required to return to the preadmission environment? No * Can the patient safely return to the preadmission environment? Yes * Has this patient been hospitalized within the prior 30 days at any hospital? No External Providers External Provider: [facility] Contact Date: Service Request Date: Service Type: Resolution: Reviewer: Comments: Coverage Notice Reviewer: [email or web address] Roxane Padgett Notice Issued Date-Time: 02/17/2019 19:50 Notice Type: IM Discharge Notice Notice Delivered To: Patient Relationship to Patient: Self Machine Technician Name: Roxi Martin Delivery Method: HAND - Hand Delivered Ricarda Days: Prior Verbal Notification: Recipient Understood Notice: Yes Recipient Signature: Yes Med Rec Note Co-signed by Attending: Coverage Notice Comment: DC IMM delivered to and signed by patient. Original given to patient and one on chart. Reviewer: [email or web address] Roxane Padgett Notice Issued Date-Time: 02/17/2019 20:05 Notice Type: Patient Choice Letter Notice Delivered To: Patient Relationship to Patient: Self Machine Technician Name: Roxi Martin Delivery Method: HAND - Hand Delivered Ricarda Days: Prior Verbal Notification: Recipient Understood Notice: Yes Recipient Signature: Yes Med Rec Note Co-signed by Attending: Coverage Notice Comment: Patient Choice signed by patient with no preference for DME. Last DP export: 02/18/19 4:31 Patient Name: ROXI MARTIN Page [id number] at 1738 All edits/amendments must be made on the electronic document DICTATION DATE: 02/18/191737 TRIMMING MACHINE SET UP OPERATOR: MERY 02/18/191737 RPT#: [id number] HI DATE: STATUS: ADM IN [facility] [address] [place] [address] END OF REPORT
--- NOTE | 2019-02-18 19:00 | NUR ---
BEDSIDE REPORT RECEIVED AND CARE OF PT ASSUMED. PT SITTING UP ON SIDE OF BED. IV TO RIGHT FA SALINE LOCKED. O2 IN USE VIA NC AT 3L. WILL MONITOR FOR NEEDS.
--- NOTE | 2019-02-18 20:08 | NUR ---
HS MEDICATIONS GIVEN. FSBS 152 THIS CHECK. HS SNACK PROVIDED PER DIET ORDERS.
[2019-02-18 20:54] VITALS: BP 145/68
--- NOTE | 2019-02-18 21:44 | NUR ---
GAVE MORPHINE 2 MG IVP PER REQUEST FOR HIP PAIN. WILL MONITOR FOR EFFECTIVENESS.
--- NOTE | 2019-02-18 22:00 | NUR ---
CALLED RT TO ASSIST IN PLACING BIPAP ON PT.
[2019-02-19 00:27] VITALS: BP 142/60
[2019-02-19 04:27] VITALS: BP 122/60
[2019-02-19 05:59] LABS: BASOPHILS 0.6 % (0-2); EOSINOPHILS 3.5 % (0-7); HEMOGLOBIN 8.7 g/dL (12-16); IMMATURE GRANULOCYTES 1.5 % (0-5); LYMPHOCYTES 10.9 % (15-50); MCH 24.7 pg (26.0-34.0); MCHC 27.2 g/dL (31.0-37.0); MCV 90.9 fL (80.0-100.0); MEAN PLATELET VOLUME 10.4 fL (7.4-10.4); MONOCYTES 8.7 % (2-11); NEUTROPHILS 74.8 % (40-80); PLATELET COUNT 314 10x3/uL (130-400); RBC 3.52 10x6/uL (4.00-5.40); RDW 22.7 % (11.5-14.5); WBC 11.8 10x3/uL (4.8-10.8)
[2019-02-19 06:34] LABS: ALBUMIN 2.6 g/dL (3.4-5.0); ANION GAP 9.6 mmol/L (8-16); BILIRUBIN - TOTAL 0.31 mg/dL (0.2-1.3); CALCIUM 8.6 mg/dL (8.5-10.1); CARBON DIOXIDE 35.6 mmol/L (21.0-32.0); CREATININE - SERUM 0.9 mg/dL (0.6-1.3); POTASSIUM - SERUM 4.2 mmol/L (3.5-5.1); PROTEIN - SERUM 6.6 g/dL (6.4-8.2)
--- NOTE | 2019-02-19 07:30 | NUR ---
PT SITTING UP ON SIDE OF BED. RESP EVEN AND UNLABORED. O2 @ 3L NC IN PLACE. PT DENIES PAIN AT THIS TIME. SALINE LOC TO RIGHT FOREARM. SITE WITHOUT REDNESS OR EDEMA. DENIES FURTHER NEEDS AT THIS TIME. CL WITHIN REACH. ENCOURAGED TO CALL WITH NEEDS. CONTINUE POC
[2019-02-19 08:36] VITALS: BP 118/68; BP 124/60
--- NOTE | 2019-02-19 12:00 | MORECARE ---
CASE MANAGEMENT DISCHARGE SUMMARY PATIENT: SEJAL MARTIN UNIT: [id number] ADM DATE: 02/09/19 AGE: 59 : 62 SEX: F ROOM/BED: D.2234 AUTHOR: KHADAR,DOC PHYSICIAN: REFERRING PHYSICIAN: HANNA SOTO MD DATE OF SERVICE: 02/19/19 Discharge Plan Patient Name: SEJAL MARTIN Facility: [facility]:[place] : 1960 Planned Disposition: Anticipated Discharge Date: 02/19/19 Discharge Date: Expected LOS: 10 Initial Reviewer: [email or web address] Initial Review Date: 02/09/2019 Generated: 02/19/19 12:59 pm Comments DCP- Discharge Planning Updated by [id number]: Bailee Mcdonald on 02/19/19 10:[address] [facility] AND SPOKE WITH DB. DB STATES THEY ARE LOOKING OVER PAPERWORK AND WILL CALL ME WHEN TRILOGY IS APPROVED. I ALSO ASKED THEM TO BRING HER A PORTABLE OXYGEN TANK. HER FAMILY IS IN THE ROOM AND STATES THE PORTABLE TANK IN HER CAR IS EMPTY. CM WILL CONTINUE TO FOLLOW AND ASSIST WITH DISCHARGE PLANNING/NEEDS. DCP- Discharge Planning Updated by [id number]: Edie Menon on 02/18/19 4:[address] Patient Name: SEJAL MARTIN Admission Status: ER Accout number: [id number] Admission Date: 02-09-2019 : 1960 Admission Diagnosis: Attending: HANNA SOTO Current LOS: 9 Anticipated DC Date: Planned Disposition: Primary Insurance: MEDICARE PART A ONLY Discharge Planning Comments: [facility] CM TO FOLLOW AND ASSIST NEEDED. ANTICIPATE DC TOMORROW. Furniture Installer: Edie Menon DCP- Discharge Planning Updated by [email or web address]: Shireen Padgett on 02/17/19 7:[address] CM met with patient to begin initial discharge plan. Patient is in agreement to proceed with assessment. Patient lives alone in her home. She has 4/2 steps w/rails entering her home. PCP: Dr. Lupis Begum. [facility]acy[facility]. 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 DME: home 02, nebulizer, walker, BP cuff, Pulse ox. She is not sure who her DME provider is, but will ask her sister to send her a picture of her 02 machine. Patient gives permission to speak with family members. Denies use of Community resources. Patient states she feels safe returning to he home environment. Denies being hospitalized within past 30 days. Emergency contact: Juancarlos Perez (sister) [phone]. Patient states either her sister or her mother will drive her home at time of discharge. CM will revisit to obtain name of 02 provided in order to arrange Trilogy. CM will assist with further dc needs/plans on a PRN basis. DCP- Discharge Planning Updated by [email or web address]: Claudette Nino on 02/12/19 3:[address] Patient Name: SEJAL MARTIN Admission Status: ER Accout number: [id number] Admission Date: 02-09-2019 : 1960 Admission Diagnosis: Attending: HANNA SOTO Current LOS: 3 Anticipated DC Date: Planned Disposition: Primary Insurance: MEDICARE PART A ONLY Discharge Planning Comments: CM met with patient to complete initial dc planning assessment. CM educated patient on the CM role and verbal consent given by patient to complete assessment. Patient lives at home alone where she is independent with her care. At discharge patient plans to return home and feels this is a safe discharge. CM discussed availability of home health, rehab services, and medical equipment. Her family will drive her home. Patient has a nebulizer, Bipap, and home o2 (unknown provider ) Patient denied known discharge needs at this time. CM will continue to follow and will assist as needed with dc plans/needs. Furniture Installer: Claudette Nino DCPIA - Discharge Planning Initial Assessment Updated by [email or web address]: Claudette Nino on 02/12/19 4:52 pm * Is the patient Alert and Oriented? Yes * How many steps to enter\exit or inside your home? * PCP LUPIS BEGUM * Pharmacy [facility] * Preadmission Environment Home Alone * ADLs Independent * Other Equipment HOME 02, NEBULIZER, BIPAP (UNKNOWN PROVIDER) BSC, SC, WALKER * List name and contact numbers for known caregivers / representatives who currently or will assist patient after discharge: JUANCARLOS PEREZ - SISTER- [phone] * Verbal permission to speak to the caregivers and representatives has been obtained from the patient. Yes * Community resources currently utilized None * Additional services required to return to the preadmission environment? No * Can the patient safely return to the preadmission environment? Yes * Has this patient been hospitalized within the prior 30 days at any hospital? No Coverage Notice Reviewer: [id number] Roxane Padgett Notice Issued Date-Time: 02/17/2019 19:50 Notice Type: IM Discharge Notice Notice Delivered To: Patient Relationship to Patient: Self Tag Machine Operator Name: Sejal Martin Delivery Method: HAND - Hand Delivered Rciarda Days: Prior Verbal Notification: Recipient Understood Notice: Yes Recipient Signature: Yes Med Rec Note Co-signed by Attending: Coverage Notice Comment: DC IMM delivered to and signed by patient. Original given to patient and one on chart. Reviewer: [id number] Roxane Padgett Notice Issued Date-Time: 02/17/2019 20:05 Notice Type: Patient Choice Letter Notice Delivered To: Patient Relationship to Patient: Self Tag Machine Operator Name: Sejal Martin Delivery Method: HAND - Hand Delivered Ricarda Days: Prior Verbal Notification: Recipient Understood Notice: Yes Recipient Signature: Yes Med Rec Note Co-signed by Attending: Coverage Notice Comment: Patient Choice signed by patient with no preference for DME. Reviewer: [id number] Roxane Mcdonald Notice Issued Date-Time: 02/19/2019 11:49 Notice Type: IM Discharge Notice Notice Delivered To: Patient Relationship to Patient: Self Tag Machine Operator Name: Delivery Method: HAND - Hand Delivered Ricarda Days: Prior Verbal Notification: Recipient Understood Notice: Yes Recipient Signature: Yes Med Rec Note Co-signed by Attending: Coverage Notice Comment: IMM EXPLAINED, SIGNED, GIVEN, COPY PLACED IN MR Last DP export: 02/18/19 4:38 Patient Name: SEJAL MARTIN Page 13742 at 1200 All edits/amendments must be made on the electronic document DICTATION DATE: 02/19/19 115 HORSE WRANGLER: MERY 02/19/191158 RPT#: [id number] DC DATE: STATUS: ADM IN [facility] [address] [place] [address] END OF REPORT
[2019-02-19] MEDS ORDERED: DIAMOX250 MG PO (12:18)
[2019-02-19] MEDS ORDERED: HYDROCHLOROTHIA25 MG PO (12:18)
[2019-02-19] MEDS ORDERED: LASIX40 MG PO (12:18)
[2019-02-19 13:24] VITALS: BP 130/61
--- NOTE | 2019-02-19 14:01 | MORECARE ---
CASE MANAGEMENT DISCHARGE SUMMARY PATIENT: ROXI MARTIN UNIT: [id number] ADM DATE: 02/09/19 AGE: 59 : 62 SEX: F ROOM/BED: D.2234 AUTHOR: PANFILO RUBALCAVA PHYSICIAN: REFERRING PHYSICIAN: HANNA SOTO MD DATE OF SERVICE: 02/19/19 Discharge Plan Patient Name: ROXI MARTIN Facility: [facility]:[place] : 1960 Planned Disposition: Anticipated Discharge Date: 02/19/19 Discharge Date: Expected LOS: 10 Initial Reviewer: [id number] Initial Review Date: 02/09/2019 Generated: 02/19/19 3:00 pm Comments DCP- Discharge Planning Updated by [email or web address]: Bailee Mcdonald on 02/19/19 12:[address] Walk test completed, she is 92% on room air post exercise. She states she does not need a portable oxygen tank. She has oxygen at home. Noemi from [facility] on her way here with the Trilogy. CM will continue to follow and assist with discharge planning/needs. DCP- Discharge Planning Updated by [email or web address]: Bailee Mcdonald on 02/19/19 10:[address] I CALLED [facility] AND SPOKE WITH DB. DB STATES THEY ARE LOOKING OVER PAPERWORK AND WILL CALL ME WHEN TRILOGY IS APPROVED. I ALSO ASKED THEM TO BRING HER A PORTABLE OXYGEN TANK. HER FAMILY IS IN THE ROOM AND STATES THE PORTABLE TANK IN HER CAR IS EMPTY. CM WILL CONTINUE TO FOLLOW AND ASSIST WITH DISCHARGE PLANNING/NEEDS. DCP- Discharge Planning Updated by [id number]: Edie Menon on 02/18/19 4:[address] Patient Name: ROXI MARTIN Admission Status: ER Accout number: [id number] Admission Date: 02-09-2019 : 1960 Admission Diagnosis: Attending: HANNA SOTO Current LOS: 9 Anticipated DC Date: Planned Disposition: Primary Insurance: MEDICARE PART A ONLY Discharge Planning Comments: CM FAXED DOCUMENTS TO [facility] FOR A TRILOGY. CM TO FOLLOW AND ASSIST NEEDED. ANTICIPATE DC TOMORROW. Change Consultant: Edie Menon DCP- Discharge Planning Updated by [id number]: Shireen Padgett on 02/17/19 7:[address] CM met with patient to begin initial discharge plan. Patient is in agreement to proceed with assessment. Patient lives alone in her home. She has 4/2 steps w/rails entering her home. PCP: Dr. Lupis Begum. [facility]acy[facility] 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 DME: home 02, nebulizer, walker, BP cuff, Pulse ox. She is not sure who her DME provider is, but will ask her sister to send her a picture of her 02 machine. Patient gives permission to speak with family members. Denies use of Community resources. Patient states she feels safe returning to he home environment. Denies being hospitalized within past 30 days. Emergency contact: Juancarlos Perez (sister) [phone]. Patient states either her sister or her mother will drive her home at time of discharge. CM will revisit to obtain name of 02 provided in order to arrange Trilogy. CM will assist with further dc needs/plans on a PRN basis. DCP- Discharge Planning Updated by [id number]: Claudette Nino on 02/12/19 3:[address] Patient Name: ROXI MARTIN Admission Status: ER Accout number: [id number] Admission Date: 02-09-2019 : 1960 Admission Diagnosis: Attending: HANNA SOTO Current LOS: 3 Anticipated DC Date: Planned Disposition: Primary Insurance: MEDICARE PART A ONLY Discharge Planning Comments: CM met with patient to complete initial dc planning assessment. CM educated patient on the CM role and verbal consent given by patient to complete assessment. Patient lives at home alone where she is independent with her care. At discharge patient plans to return home and feels this is a safe discharge. CM discussed availability of home health, rehab services, and medical equipment. Her family will drive her home. Patient has a nebulizer, Bipap, and home o2 (unknown provider ) Patient denied known discharge needs at this time. CM will continue to follow and will assist as needed with dc plans/needs. Change Consultant: Claudette Nino DCPIA - Discharge Planning Initial Assessment Updated by [id number]: Claudette Nino on 02/12/19 4:52 pm * Is the patient Alert and Oriented? Yes * How many steps to enter\exit or inside your home? * PCP LUPIS BEGUM * Pharmacy [facility] * Preadmission Environment Home Alone * ADLs Independent * Other Equipment HOME 02, NEBULIZER, BIPAP (UNKNOWN PROVIDER) BSC, SC, WALKER * List name and contact numbers for known caregivers / representatives who currently or will assist patient after discharge: JUANCARLOS PEREZ - - [phone] * Verbal permission to speak to the caregivers and representatives has been obtained from the patient. Yes * Community resources currently utilized None * Additional services required to return to the preadmission environment? No * Can the patient safely return to the preadmission environment? Yes * Has this patient been hospitalized within the prior 30 days at any hospital? No Coverage Notice Reviewer: [id number] Roxane Padgett Notice Issued Date-Time: 02/17/2019 19:50 Notice Type: IM Discharge Notice Notice Delivered To: Patient Relationship to Patient: Self Pitting Machine Operator Name: Roxi Martin Delivery Method: HAND - Hand Delivered Ricarda Days: Prior Verbal Notification: Recipient Understood Notice: Yes Recipient Signature: Yes Med Rec Note Co-signed by Attending: Coverage Notice Comment: DC IMM delivered to and signed by patient. Original given to patient and one on chart. Reviewer: [id number] Roxane Padgett Notice Issued Date-Time: 02/17/2019 20:05 Notice Type: Patient Choice Letter Notice Delivered To: Patient Relationship to Patient: Self Pitting Machine Operator Name: Roxi Martin Delivery Method: HAND - Hand Delivered Ricarda Days: Prior Verbal Notification: Recipient Understood Notice: Yes Recipient Signature: Yes Med Rec Note Co-signed by Attending: Coverage Notice Comment: Patient Choice signed by patient with no preference for DME. Reviewer: [id number] Roxane Mcdonald Notice Issued Date-Time: 02/19/2019 11:49 Notice Type: IM Discharge Notice Notice Delivered To: Patient Relationship to Patient: Self Pitting Machine Operator Name: Delivery Method: HAND - Hand Delivered Ricarda Days: Prior Verbal Notification: Recipient Understood Notice: Yes Recipient Signature: Yes Med Rec Note Co-signed by Attending: Coverage Notice Comment: IMM EXPLAINED, SIGNED, GIVEN, COPY PLACED IN MR Last DP export: 02/19/19 11:00 Patient Name: ROXI MARTIN Page [id number] at 1401 All edits/amendments must be made on the electronic document DICTATION DATE: 02/19/191399 IT APPLICATIONS DEVELOPER: MERY 02/19/191399 RPT#: [id number] DC DATE: STATUS: ADM IN [facility] [address] [place] [address] END OF REPORT
== END 2019-02-19 16:10 | disposition home or self-care (01) | DRG 193 ==
LOC: D.ER 11:29 → D.ICU 12:51 → D.MS 02-15 18:34
PROVIDERS: Emergency Medicine; ADMIT Internal Medicine Nephrology; ATTEND Internal Medicine Nephrology
PROC: 5A09457 Assistance with Respiratory Ventilation, 24-96 Consecutive Hours, Continuous Positive Airway Pressure (ICD-10-PCS; principal; 2019-02-09)
DX: J13 Pneumonia due to Streptococcus pneumoniae (principal); J96.22 Acute and chronic respiratory failure with hypercapnia; J96.21 Acute and chronic respiratory failure with hypoxia; I50.31 Acute diastolic (congestive) heart failure; F17.203 Nicotine dependence unspecified, with withdrawal; J44.1 Chronic obstructive pulmonary disease with (acute) exacerbation; Z68.43 Body mass index [BMI] 50.0-59.9, adult; I27.20 Pulmonary hypertension, unspecified; I11.0 Hypertensive heart disease with heart failure; D50.9 Iron deficiency anemia, unspecified; E66.01 Morbid (severe) obesity due to excess calories; R53.81 Other malaise; E11.9 Type 2 diabetes mellitus without complications; R91.8 Other nonspecific abnormal finding of lung field